=== PATIENT | female | born 1955 ===

== ENCOUNTER 2017-04-24 20:03 | Inpatient (IN) | payer OTHER ==
[2017-04-24 20:06] VITALS: BMI 42.0
[2017-04-24] MEDS ORDERED: Sodium Chloride 0.9% 1,000 ML IV STA (20:12)
[2017-04-24] MEDS ORDERED: Morphine 4 mg/ml ISec IVP STA (20:12)
[2017-04-24] MEDS ORDERED: Pantoprazole 40 MG in Sodium Chloride 0.9% 100 ML IV STA (20:12)
--- NOTE | 2017-04-24 20:58 | ED PDOC ---
Arrival/HPI - General Chief Complaint: Abdominal Pain Time Seen by Provider: 04/24/17 20:04 Historian: Patient - History of Present Illness Narrative History of Present Illness (Text): 04/24/17 20:58 Daksha Riddle is a 62 year old female, whose past medical history includes hypertension, diabetes, obesity, chronic knee pain, and neuropathy, who presents to the Emergency department complaining of diffuse abdominal pain for 1 day. Patient reports associated vomiting. Patient denies any fever, chills, chest pain, shortness of breath, diarrhea, urinary symptoms, back pain, neck pain, headache, dizziness, or any other complaints. PMD: Dr. Vincent Art Time/Duration: Other (1 day) Symptom Onset: Gradual Symptom Course: Unchanged Activities at Onset: Light Context: Home Past Medical History - Provider Review Nursing Documentation Reviewed: Yes - Infectious Disease Hx of Infectious Diseases: None - Tetanus Immunization Tetanus Immunization: Unknown - Cardiac Hx Pacemaker: No - Pulmonary Hx Asthma: Yes Hx Bronchitis: Yes - Neurological Hx Paralysis: No - HEENT Hx HEENT Disorder: No - Renal Hx Renal Disorder: No - Endocrine/Metabolic Hx Diabetes Mellitus Type 2: Yes - Hematological/Oncological Hx Blood Transfusions: No Hx Blood Transfusion Reaction: No - Integumentary Hx Dermatological Disorder: No - Musculoskeletal/Rheumatological Hx Musculoskeletal Disorders: Yes Hx Fractures: Yes (bilateral ankle, left hip) Other/Comment: "Knee problems" - Gastrointestinal Hx Gastrointestinal Disorders: No - Genitourinary/Gynecological Hx Genitourinary Disorders: No - Psychiatric Hx Emotional Abuse: No Hx Physical Abuse: No Hx Substance Use: No - Past Surgical History Past Surgical History: Non-Contributing - Surgical History Hx Appendectomy: Yes Hx Cholecystectomy: Yes Hx Orthopedic Surgery: Yes (left hip, "fusion of neck") - Anesthesia Hx Anesthesia Reactions: No Hx Malignant Hyperthermia: No - Suicidal Assessment Feels Threatened In Home Enviroment: No Family/Social History - Physician Review Nursing Documentation Reviewed: Yes Family/Social History: Unknown Family HX Smoking Status: Current Some Days Smoker Hx Alcohol Use: No Hx Substance Use: No Hx Substance Use Treatment: No Allergies/Home Meds Allergies/Adverse Reactions: Allergies Penicillins Allergy (Severe, Verified 01/25/16 13:22) ANAPHYLAXIS Home Medications: Home Meds Medication Instructions Recorded Confirmed Aspirin [Aspirin Chewable] 81 mg PO DAILY 04/25/17 04/25/17 Fluticasone/Salmeterol 250/50 2 puff INH DAILY 04/25/17 04/25/17 [Advair Diskus 250/50] Gabapentin [Neurontin] 600 mg PO TID 04/25/17 04/25/17 Sertraline [Zoloft] 50 mg PO DAILY 04/25/17 04/25/17 metFORMIN [glucOPHAGE] 500 mg PO BID 04/25/17 04/25/17 Review of Systems - Physician Review All systems were reviewed & negative as marked: Yes - Review of Systems Constitutional: Normal, Fevers Eyes: Normal ENT: Normal Respiratory: Normal. absent: SOB, Cough Cardiovascular: Normal. absent: Chest Pain Gastrointestinal: Abdominal Pain, Vomiting. absent: Diarrhea Genitourinary Female: Normal. absent: Dysuria, Frequency, Hematuria, Urine Output Changes Musculoskeletal: Normal. absent: Back Pain, Neck Pain Skin: Normal. absent: Rash Neurological: Normal. absent: Headache, Dizziness Endocrine: Normal Hemo/Lymphatic: Normal Psychiatric: Normal Physical Exam Vital Signs Reviewed: Yes Vital Signs Temp Pulse Resp BP Pulse Ox 04/25/17 01:27 79 20 127/60 95 04/24/17 23:39 98.3 F 79 17 127/57 L 98 04/24/17 20:31 98.2 F 74 16 114/65 96 Temperature: Afebrile Blood Pressure: Normal Pulse: Regular Respiratory Rate: Normal Appearance: Positive for: Well-Appearing, Non-Toxic, Comfortable Pain Distress: None Mental Status: Positive for: Alert and Oriented X 3 - Systems Exam Head: Present: Atraumatic, Normocephalic Pupils: Present: PERRL Extroacular Muscles: Present: EOMI Conjunctiva: Present: Normal Mouth: Present: Moist Mucous Membranes Neck: Present: Normal Range of Motion Respiratory/Chest: Present: Clear to Auscultation, Good Air Exchange. No: Respiratory Distress, Accessory Muscle Use Cardiovascular: Present: Regular Rate and Rhythm, Normal S1, S2. No: Murmurs Abdomen: Present: Tenderness (Diffuse tenderness), Normal Bowel Sounds. No: Distention, Peritoneal Signs, Rebound, Guarding Back: Present: Normal Inspection Upper Extremity: Present: Normal Inspection. No: Cyanosis, Edema Lower Extremity: Present: Normal Inspection. No: Edema Neurological: Present: GCS=15, CN II-XII Intact, Speech Normal Skin: Present: Warm, Dry, Normal Color. No: Rashes Psychiatric: Present: Alert, Oriented x 3, Normal Insight, Normal Concentration Medical Decision Making ED Course and Treatment: 04/24/17 20:58 Impression: 62 year old female complaining of diffuse abdominal pain and vomiting x1 day. Differential Diagnosis included but are not limited to: SBO vs. abdominal pain Plan: -- CT Abdomen and Pelvis -- EKG -- Labs, cardiac enzymes, amylase, lipase, blood cultures -- Urinalysis, urine cultures -- IV fluids -- Zofran -- Protonix -- Morphine -- Reassess and disposition Prior Visits: Notes and results from previous visits were reviewed. On 01/25/2016, pt was seen in the Emergency department for bilateral knee pain. Pt was d/c home. Progress Notes: Reviewed EKG, NSR at [address] bpm[address] Non-specific ST/T wave changes. 04/24/17 23:43 Reviewed radiology, CT Abdomen and Pelvis shows: 1. There is a relatively low density 19 mm right adrenal lesion. This is incompletely characterized on the post contrast study however may represent adenoma. Please correlate clinically and if indicated this could be further evaluated with adrenal CT or adrenal MRI. 2. There is small bowel obstruction with proximal loops measuring up to 4.3 CM and demonstrating some fecalization. Transition zone appears to be in the pelvis. 04/25/17 00:[address] Art, who is aware and agrees with plan. Accepts pt in to his service. Pt will be admitted to [facility] for small bowel obstruction. Requests on consult. president and ceo seasonal retail merchandiser paged. Pt in no acute distress. Discussed results and plan with pt, who is aware and verbalizes understanding. 04/25/17 00:[address] Dorsey, vice president of operations seasonal retail merchandiser, who is aware and agrees to evaluate pt. , surgeon, paged. - Lab Interpretations Microbiology Results: Microbiology Results 04/24/17 20:30 Blood-Venous Blood Culture - Preliminary NO GROWTH AFTER 48 HOURS 04/24/17 20:00 Blood-Venous Blood Culture - Preliminary NO GROWTH AFTER 48 HOURS 04/24/17 21:29 Urine,Clean Catch Urine Culture - Final No Growth (<1,000 CFU/ML) Lab Results: 04/24/17 20:48 04/24/17 20:48 Lab Results 04/24/17 22:40: pO2 32, VBG pH 7.28 L, VBG pCO2 66.0 H*, VBG HCO3 31.0 H, VBG Total CO2 33.0 H, VBG O2 Sat (Calc) 66.8 H, VBG Base Excess 2.4 H, VBG Potassium 4.0, Glucose 137 H, Lactate 1.3, FiO2 21.0, Sodium 139.0, Chloride 103.0, Venous Blood Potassium 4.0 04/24/17 21:29: Urine Color Yellow, Urine Appearance Clear, Urine pH 7.0, Ur Specific [place] 1.020, Urine Protein Negative, Urine Glucose (UA) Negative, Urine Ketones Trace H, Urine Blood Negative, Urine Nitrate Negative, Urine Bilirubin Negative, Urine Urobilinogen 0.2, Ur Leukocyte Esterase Negative 04/24/17 20:48: Sodium 139, Potassium 4.9, Chloride 102, Carbon Dioxide 30, Anion Gap 12, BUN 19, Creatinine 0.9, Est GFR ( Amer) > 60, Est GFR (Non- Af Amer) > 60, Random Glucose 184 H, Calcium 9.7, Total Bilirubin 1.1, AST 41 H , ALT 21, Alkaline Phosphatase 114, Lactate Dehydrogenase 913 H, Total Creatine Kinase 78, Troponin I 0.01, Total Protein 8.0, Albumin 4.4, Globulin 3.6, Albumin/Globulin Ratio 1.2, Amylase 61, Lipase 31 04/24/17 20:48: PT 10.5, INR 0.97, APTT 26.1 04/24/17 20:48: WBC 14.1 H D, RBC 4.72, Hgb 13.8, Hct 42.1, MCV 89.2, MCH 29.2, MCHC 32.8, RDW 14.5, Plt Count 268, MPV 11.8 H, Gran % 78.7 H, Lymph % (Auto) 14.0 L, [place] % (Auto) 6.7 H, Eos % (Auto) 0.4 L, Baso % (Auto) 0.2, Gran # 11.07 H, Lymph # 2.0, [place] # 1.0 H, Eos # 0.1, Baso # 0.03 I have reviewed the lab results: Yes - RAD Interpretation Narrative RAD Interpretations (Text): CT Abdomen and Pelvis shows: Lower thorax: There is minimal bibasilar atelectasis. There is calcification of the mitral valve. There is coronary artery calcification. Small hiatal hernia. ABDOMEN: Liver: There are no focal liver lesions present. Gallbladder and bile ducts: There has been a cholecystectomy. No ductal dilation. Pancreas: Pancreas is slightly fatty replaced. No ductal dilation. Spleen: The spleen is normal. Adrenals: There is a relatively low density 19 mm right adrenal lesion. This is incompletely characterized on the post contrast study however may represent adenoma. Please correlate clinically and if indicated this could be further evaluated with adrenal CT or adrenal MRI. The left adrenal gland is normal. Kidneys and ureters: The kidneys are normal. No hydronephrosis. Stomach and bowel: There is small bowel obstruction with proximal loops measuring up to 4.3 CM and demonstrating some fecalization. Transition zone appears to be in the pelvis. The stomach is normal. No mucosal thickening. Appendix: There has been an appendectomy by history. PELVIS: Bladder: Bladder is decompressed. Reproductive: Uterus is atrophic or absent. ABDOMEN and PELVIS: Intraperitoneal space: There is no evidence of free intraperitoneal fluid. There is no free intraperitoneal air. Bones/joints: Additionally, there are several screws traversing the superior acetabulum. These presumably secured an old fracture. There are mild degenerative changes present. There is mild diffuse osteopenia. No dislocation. Soft tissues: Unremarkable. Vasculature: The aorta demonstrates mild atherosclerotic calcification. No abdominal aortic aneurysm. Lymph nodes: There is no evidence of lymphadenopathy. Tubes, lines and devices: There is a left hip prosthesis which appears in near- anatomic position. This leads to beam hardening artifact and limits evaluation of the left hip and low pelvis regions. IMPRESSION: 1. There is a relatively low density 19 mm right adrenal lesion. This is incompletely characterized on the post contrast study however may represent adenoma. Please correlate clinically and if indicated this could be further evaluated with adrenal CT or adrenal MRI. 2. There is small bowel obstruction with proximal loops measuring up to 4.3 CM and demonstrating some fecalization. Transition zone appears to be in the pelvis. Radiology Orders: 04/24/17 20:13 ABD & PELVIS IV CONTRAST ONLY [CT] [employer] Integrator: Radiologist - EKG Interpretation Interpreted by ED Physician: Yes Type: 12 lead EKG - Medication Orders Current Medication Orders: Acetaminophen (Tylenol 325mg Tab) 650 mg PO Q4 PRN PRN Reason: Fever >100.4 F Heparin Sodium (Porcine) (Heparin) 5,000 units SC 0600,1800 [facility] PRN Reason: Protocol Last Admin: 04/27/17 17:16 Dose: 5,000 units [facility] aPTT Document 04/27/17 17:16 [facility] (Rec: 04/27/17 17:16 [id number]) aPTT aPTT (secs) 27.1 Subcutaneous Administrations Document 04/27/17 17:16 [facility] (Rec: 04/27/17 17:16 [id number]) Injection Site MAR Injection Site Left Abdomen Charges for Administration # of Subcutaneous Administrations 1 Hydromorphone HCl (Dilaudid) 2 mg IVP Q4H PRN PRN Reason: Pain, severe (8-10) Last Admin: 04/27/17 17:31 Dose: 2 mg [facility] Pain Assessment Document 04/27/17 17:31 MAD (Rec: 04/27/17 17:32 [facility]-[id number]) Pain Reassessment Is this a pain reassessment? Yes Sleep Is patient sleeping during reassessment? No Presence of Pain Presence of Pain Yes Pain Scale Used Pain Scale Used Numeric Location Upper or Lower Lower Pain Location Body Site Abdomen Description Description Throbbing Intensity of Pain at present 8 Acceptable Level of Pain 3 Pain Behavior Moaning Alleviating Factors/Management Medication Techniques Alleviating Factors Medication Pain not relieved and LIP/MD was No notified IVP Administration Document 04/27/17 17:31 [facility] (Rec: 04/27/17 17:32 [id number]) Charges for Administration # of IVP Administrations 1 Re-Assess: [facility] Pain Assessment Document 04/27/17 18:31 SD (Rec: 04/27/17 18:32 SD [id number]) Pain Reassessment Is this a pain reassessment? Yes Sleep Is patient sleeping during reassessment? Yes Sodium Chloride (Sodium Chloride 0.9%) 1,000 mls @ 130 mls/hr IV .[id number] [facility] Last Admin: 04/27/17 05:48 Dose: 130 mls/hr eMAR Start Stop Document 04/27/17 05:48 BN (Rec: 04/27/17 05:48 BN [id number]) Intravenous Solution Start Date 04/27/17 Start Time 05:48 Aztreonam (Azactam 1 Gm) 100 mls @ 100 mls/hr IV Q8 [facility] PRN Reason: Protocol Stop: 05/04/17 15:10 Last Admin: 04/27/17 13:26 Dose: 100 mls/hr eMAR Start Stop Document 04/27/17 13:26 MAD (Rec: 04/27/17 13:27 MAD [id number]) Intravenous Solution Start Date 04/27/17 Start Time 13:27 Metronidazole (Flagyl) 500 mg in 100 mls @ 100 mls/hr IVPB Q8 [facility] PRN Reason: Protocol Stop: 05/04/17 22:01 Last Admin: 04/27/17 14:26 Dose: 100 mls/hr eMAR Start Stop Document 04/27/17 14:26 SD (Rec: 04/27/17 14:27 SD [id number]) Intravenous Solution Start Date 04/27/17 Start Time 15:00 End Date 04/27/17 End time 16:00 Total Infusion Time 60 Insulin Human Regular (Humulin R High) 0 units SC ACHS [facility] PRN Reason: Protocol Last Admin: 04/27/17 16:44 Dose: Not Given Non-Admin Reason: Blood Sugar Parameter Comments: FBG 102 MAR Blood Glucose Document 04/27/17 16:44 MAD (Rec: 04/27/17 16:44 [id number]) Blood Glucose Finger Stick Blood Glucose (70-120) 102 Subcutaneous Administrations Document 04/27/17 16:44 MAD (Rec: 04/27/17 16:44 [facility]-[id number]) Injection Site MAR Injection Site Left Abdomen Charges for Administration # of Subcutaneous Administrations 0 Ketorolac Tromethamine (Toradol) 15 mg IVP Q4 PRN PRN Reason: Pain, moderate (4-7) Ondansetron HCl (Zofran Inj) 4 mg IVP Q4H PRN PRN Reason: Nausea/Vomiting Last Admin: 04/26/17 17:38 Dose: 4 mg IVP Administration Document 04/26/17 17:38 ANTOALL (Rec: 04/26/17 17:38 ANTOALL [facility]- [id number]) Charges for Administration # of IVP Administrations 1 Ondansetron HCl (Zofran Inj) 4 mg IVP ONCE PRN PRN Reason: Nausea/Vomiting Pantoprazole Sodium (Protonix Inj) 40 mg IVP DAILY [facility] Last Admin: 04/27/17 11:00 Dose: 40 mg IVP Administration Document 04/27/17 11:00 MAD (Rec: 04/27/17 11:01 MAD [id number]) Charges for Administration # of IVP Administrations 1 Discontinued Medications Hydromorphone HCl (Dilaudid) 2 mg IVP STAT STA Stop: 04/24/17 22:48 Last Admin: 04/24/17 23:01 Dose: 2 mg MAR Pain Assessment Document 04/24/17 23:01 SS (Rec: 04/24/17 23:02 SS [id number]) Pain Reassessment Is this a pain reassessment? Yes Sleep Is patient sleeping during reassessment? No Presence of Pain Presence of Pain Yes Pain Scale Used Pain Scale Used Numeric Location Pain Location Body Site Abdomen Description Intensity of Pain at present 9 IVP Administration Document 04/24/17 23:01 SS (Rec: 04/24/17 23:02 SS [id number]) Charges for Administration # of IVP Administrations 1 Hydromorphone HCl (Dilaudid) 0.5 mg IVP Q15M PRN PRN Reason: Pain, moderate (4-7) Stop: 04/26/17 17:33 Pantoprazole Sodium 40 mg/ (Sodium Chloride) 100 mls @ 400 mls/hr IV STAT STA Stop: 04/24/17 20:26 Last Admin: 04/24/17 20:54 Dose: 400 mls/hr eMAR Start Stop Document 04/24/17 20:54 SS (Rec: 04/24/17 20:54 SS [id number]) Intravenous Solution Start Date 04/24/17 Start Time 20:54 Sodium Chloride (Sodium Chloride 0.9%) 1,000 mls @ 100 mls/hr IV .Q10H STA Stop: 04/25/17 06:11 Last Admin: 04/24/17 20:54 Dose: 100 mls/hr eMAR Start Stop Document 04/24/17 20:54 SS (Rec: 04/24/17 20:54 SS [id number]) Intravenous Solution Start Date 04/24/17 Start Time 20:54 Clindamycin Phosphate 300 mg/ (Sodium Chloride) 52 mls @ 104 mls/hr IVPB STAT STA PRN Reason: Protocol Stop: 04/25/17 00:53 Last Admin: 04/25/17 01:17 Dose: 104 mls/hr eMAR Start Stop Document 04/25/17 01:17 SS (Rec: 04/25/17 01:17 SS [id number]) Intravenous Solution Start Date 04/25/17 Start Time 01:17 Metronidazole (Flagyl) 500 mg in 100 mls @ 100 mls/hr IVPB STAT STA PRN Reason: Protocol Stop: 04/25/17 01:23 Last Admin: 04/25/17 03:03 Dose: 100 mls/hr eMAR Start Stop Document 04/25/17 03:03 [employer] (Rec: 04/25/17 03:04 [employer] [id number]) Intravenous Solution Start Date 04/25/17 Start Time 03:04 End Date 04/25/17 End time 04:04 Total Infusion Time 60 Lactated Ringer's (Lactated Ringer's) 1,000 mls @ 75 mls/hr IV .[id number] [facility] Stop: 04/26/17 17:46 Morphine Sulfate (Morphine) 2 mg IVP STAT STA Stop: 04/24/17 20:13 Last Admin: 04/24/17 20:53 Dose: 2 mg MAR Pain Assessment Document 04/24/17 20:53 SS (Rec: 04/24/17 20:54 SS [id number]) Pain Reassessment Is this a pain reassessment? No Sleep Is patient sleeping during reassessment? No Presence of Pain Presence of Pain Yes Pain Scale Used Pain Scale Used Numeric Location Upper or Lower Lower Pain Location Body Site Abdomen Description Intensity of Pain at present 9 IVP Administration Document 04/24/17 20:53 SS (Rec: 04/24/17 20:54 SS [id number]) Charges for Administration # of IVP Administrations 1 Morphine Sulfate (Morphine) 2 mg IVP Q4H PRN PRN Reason: Pain, moderate (4-7) Last Admin: 04/26/17 04:06 Dose: 2 mg MAR Pain Assessment Document 04/26/17 04:06 BN (Rec: 04/26/17 04:06 BN [id number]) Pain Reassessment Is this a pain reassessment? No Sleep Is patient sleeping during reassessment? No Presence of Pain Presence of Pain Yes Pain Scale Used Pain Scale Used Numeric Location Pain Location Body Site Abdomen Description Pain Behavior Moaning Restlessness Alleviating Factors/Management Medication Techniques Alleviating Factors Medication IVP Administration Document 04/26/17 04:06 BN (Rec: 04/26/17 04:06 BN [id number]) Charges for Administration # of IVP Administrations 1 Re-Assess: MAR Pain Assessment Document 04/26/17 05:06 BN (Rec: 04/26/17 07:12 BN [id number]) Pain Reassessment Is this a pain reassessment? Yes Sleep Is patient sleeping during reassessment? Yes Ondansetron HCl (Zofran Inj) 4 mg IVP STAT STA Stop: 04/24/17 20:13 Last Admin: 04/24/17 20:54 Dose: 4 mg IVP Administration Document 04/24/17 20:54 SS (Rec: 04/24/17 20:54 SS [id number]) Charges for Administration # of IVP Administrations 1 - Scribe Statement The provider has reviewed the documentation as recorded by the Courtney Stewart Provider Scribe Attestation: All medical record entries made by the Scribbernabe were at my direction and personally dictated by me. I have reviewed the chart and agree that the record accurately reflects my personal performance of the history, physical exam, medical decision making, and the department course for this patient. I have also personally directed, reviewed, and agree with the discharge instructions and disposition. Disposition/Present on Arrival - Present on Arrival Any Indicators Present on Arrival: No History of DVT/PE: No History of Uncontrolled Diabetes: No Urinary Catheter: No History of Decub. Ulcer: No History Surgical Site Infection Following: None - Disposition Have Diagnosis and Disposition been Completed?: Yes Diagnosis: Small bowel obstruction Disposition: HOSPITALIZED Disposition Time: 00:25 Condition: FAIR
[2017-04-24 21:04] LABS: BASO # 0.03 K/mm3 (0.0-2.0); BASO % 0.2 % (0.0-3.0); EOS # 0.1 (0.0-0.7); EOS % 0.4 % (1.5-5.0); GRAN # 11.07 (1.4-6.5); GRAN % 78.7 % (50.0-68.0); HEMATOCRIT 42.1 % (36.0-48.0); MEAN CELL VOLUME 89.2 fl (80.0-105.0); MEAN CORPUSCULAR HEMOGLOBIN 29.2 pg (25.0-35.0); MEAN CORPUSCULAR HGB CONC 32.8 g/dl (31.0-37.0); MEAN PLATELET VOLUME 11.8 fl (7.0-11.0); MONO % 6.7 % (1.0-6.0); RED CELL DISTRIBUTION WIDTH 14.5 % (11.5-14.5); WHITE BLOOD COUNT 14.1 10^3/ul (4.5-11.0)
[2017-04-24 21:05] LABS: ALB/GLOB RATIO 1.2 (1.1-1.8); ALKALINE PHOSPHATASE 114 U/L (38-126); ALT/SGPT 21 U/L (7-56); AMYLASE 61 U/L (35-125); AST/SGOT 41 U/L (14-36); BILIRUBIN,TOTAL 1.1 mg/dL (0.2-1.3); BLOOD UREA NITROGEN 19 mg/dL (7-21); CALCIUM 9.7 mg/dL (8.4-10.5); CARBON DIOXIDE 30 mmol/L (21-33); CHLORIDE 102 mmol/L (98-107); GFR AFRICAN-AMERICAN > 60; GLUCOSE,RANDOM 184 mg/dL (70-110); LIPASE 31 U/L (23-300); POTASSIUM 4.9 mmol/L (3.6-5.0); SODIUM 139 mmol/L (132-148)
[2017-04-24 21:22] LABS: TROPONIN I 0.01 ng/mL
[2017-04-24 21:23] LABS: INR 0.97 (0.93-1.08); PARTIAL THROMBOPLASTIN TIME 26.1 Seconds (23.7-30.8)
[2017-04-24 21:37] LABS: URINE BILIRUBIN NEGATIVE (NEGATIVE); URINE BLOOD NEGATIVE (NEGATIVE); URINE GLUCOSE (UA) NEGATIVE (NEGATIVE); URINE KETONE TRACE mg/dL (NEGATIVE); URINE LEUKOCYTE ESTERASE NEGATIVE Leu/uL (NEGATIVE); URINE PROTEIN NEGATIVE mg/dL (<30 mg/dL); URINE UROBILINOGEN 0.2 E.U./dL (<1 E.U./dL)
[2017-04-24 21:42] LABS: URINE APPEARANCE CLEAR (CLEAR); URINE COLOR YELLOW (YELLOW)
[2017-04-24 22:44] LABS: VENOUS BLOOD GAS BASE EXCESS 2.4 mmol/L (0.0-2.0); VENOUS BLOOD PH 7.28 (7.32-7.43)
[2017-04-24] MEDS ORDERED: HYDROmorphone 2 mg/ml ISec IVP STA (22:47)
--- NOTE | 2017-04-24 23:40 | CT ---
EXAM: CT Abdomen and Pelvis With Intravenous Contrast CLINICAL HISTORY: 62 years old, female; Pain; Abdominal pain; Localized; Other: Mid abdomen pain; Prior surgery; Surgery date: 6+ months; Surgery type: Ap, gb, left hip; Additional info: Abd pain TECHNIQUE: Axial computed tomography images of the abdomen and pelvis with intravenous contrast. All CT scans at this facility use one or more dose reduction techniques, viz.: automated exposure control; ma/kV adjustment per patient size (including targeted exams where dose is matched to indication; i.e. head); or iterative reconstruction technique. Coronal and sagittal reformatted images were created and reviewed. CONTRAST: 70.5 mL of OMNIPAQUE 350 administered intravenously. COMPARISON: No relevant prior studies available. FINDINGS: Lower thorax: There is minimal bibasilar atelectasis. There is calcification of the mitral valve. There is coronary artery calcification. Small hiatal hernia. ABDOMEN: Liver: There are no focal liver lesions present. Gallbladder and bile ducts: There has been a cholecystectomy. No ductal dilation. Pancreas: Pancreas is slightly fatty replaced. No ductal dilation. Spleen: The spleen is normal. Adrenals: There is a relatively low density 19 mm right adrenal lesion. This is incompletely characterized on the post contrast study however may represent adenoma. Please correlate clinically and if indicated this could be further evaluated with adrenal CT or adrenal MRI. The left adrenal gland is normal. Kidneys and ureters: The kidneys are normal. No hydronephrosis. Stomach and bowel: There is small bowel obstruction with proximal loops measuring up to 4.3 CM and demonstrating some fecalization. Transition zone appears to be in the pelvis. The stomach is normal. No mucosal thickening. Appendix: There has been an appendectomy by history. PELVIS: Bladder: Bladder is decompressed. Reproductive: Uterus is atrophic or absent. ABDOMEN and PELVIS: Intraperitoneal space: There is no evidence of free intraperitoneal fluid. There is no free intraperitoneal air. Bones/joints: Additionally, there are several screws traversing the superior acetabulum. These presumably secured an old fracture. There are mild degenerative changes present. There is mild diffuse osteopenia. No dislocation. Soft tissues: Unremarkable. Vasculature: The aorta demonstrates mild atherosclerotic calcification. No abdominal aortic aneurysm. Lymph nodes: There is no evidence of lymphadenopathy. Tubes, lines and devices: There is a left hip prosthesis which appears in near-anatomic position. This leads to beam hardening artifact and limits evaluation of the left hip and low pelvis regions. IMPRESSION: 1. There is a relatively low density 19 mm right adrenal lesion. This is incompletely characterized on the post contrast study however may represent adenoma. Please correlate clinically and if indicated this could be further evaluated with adrenal CT or adrenal MRI. 2. There is small bowel obstruction with proximal loops measuring up to 4.3 CM and demonstrating some fecalization. Transition zone appears to be in the pelvis.
[2017-04-25] MEDS ORDERED: Clindamycin 300 MG in Sodium Chloride 0.9% 50 ML IVPB STA (00:24)
[2017-04-25] MEDS ORDERED: metroNIDAZOLE IV 500 mg/100 ml 500 MG/100 ML BAG IVPB STA (00:24)
--- NOTE | 2017-04-25 00:29 | CP.PCM.CON ---
History of Present Illness - History of Present Illness History of Present Illness: Surgery Consult note. 62yo F with PMHx of DM, Asthma, Depression here for evaluation of abdominal pain. Patient reports that she had spaghetti at around 3PM. She then started having severe abdominal pain, located in the center of her abdomen. She reports nausea and 1 episode of vomiting at home, non-bilious, non bloody. She describes the pain and sharp, crampy and waxing and waning. She denies ever having pain such as this before. At 7PM, she felt light-headed and had diaphoresis so she came to the ED for further evaluation. Last BM was this morning (normal caliber, nonbloody, non melanotic) and denies having any flatus since. She denies any chest pain, no SOB. No fevers or chills. No urinary complaints. No recent illness or sick contacts. PMD: Vincent Art PMHx: DM, Asthma, Depression PSHx: reports open appendectomy at age 15 followed by "bowel surgery for obstruction" 2 months after. Open Cholecystectomy 2000. Left Hip ORIF. Cervical spine fusion Social Hx: Former smoker (half ppd for 40 years, quit 1 year ago). Denies ETOH. Denies drugs. Lives at home with roommate. Allergy: PCN Review of Systems - Review of Systems All systems: reviewed and no additional remarkable complaints except - Constitutional Constitutional: absent: Chills, Fever - Cardiovascular Cardiovascular: Diaphoresis, Lightheadedness. absent: Chest Pain, Dyspnea - Gastrointestinal Gastrointestinal: Abdominal Pain, Nausea, Vomiting. absent: Diarrhea, Hematemesis, Hematochezia, Melena - Genitourinary Genitourinary: absent: Dysuria Past Patient History - Infectious Disease Hx of Infectious Diseases: None - Tetanus Immunizations Tetanus Immunization: Unknown - Past Medical History & Family History Past Medical History?: Yes Past Family History: Reviewed and not pertinent - Past Social History Smoking Status: Former Smoker Alcohol: None Drugs: Denies Home Situation {Lives}: Roommate - CARDIAC Hx Pacemaker: No - PULMONARY Hx Asthma: Yes Hx Bronchitis: Yes - NEUROLOGICAL Hx Paralysis: No - HEENT Hx HEENT Problems: No - RENAL Hx Chronic Kidney Disease: No - ENDOCRINE/METABOLIC Hx Diabetes Mellitus Type 2: Yes - HEMATOLOGICAL/ONCOLOGICAL Hx Blood Transfusions: No Hx Blood Transfusion Reaction: No - INTEGUMENTARY Hx Dermatological Problems: No - MUSCULOSKELETAL/RHEUMATOLOGICAL Hx Musculoskeletal Disorders: Yes Hx Fractures: Yes (bilateral ankle, left hip) Other/Comment: "Knee problems" - GASTROINTESTINAL Hx Gastrointestinal Disorders: No - GENITOURINARY/GYNECOLOGICAL Hx Genitourinary Disorders: No - PSYCHIATRIC Hx Emotional Abuse: No Hx Physical Abuse: No Hx Substance Use: No - SURGICAL HISTORY Hx Appendectomy: Yes Hx Cholecystectomy: Yes Hx Orthopedic Surgery: Yes (left hip, "fusion of neck") - ANESTHESIA Hx Anesthesia Reactions: No Hx Malignant Hyperthermia: No Meds Allergies/Adverse Reactions: Allergies Allergy/AdvReac Type Severity Reaction Status Date / Time Penicillins Allergy Severe ANAPHYLAXIS Verified 01/25/16 13:22 - Medications Medications: Current Medications Sodium Chloride (Sodium Chloride 0.9%) 1,000 mls @ 100 mls/hr IV .Q10H STA Stop: 04/25/17 06:11 Last Admin: 04/24/17 20:54 Dose: 100 mls/hr Clindamycin Phosphate 300 mg/ (Sodium Chloride) 52 mls @ 104 mls/hr IVPB STAT STA PRN Reason: Protocol Stop: 04/25/17 00:53 Metronidazole (Flagyl) 500 mg in 100 mls @ 100 mls/hr IVPB STAT STA PRN Reason: Protocol Stop: 04/25/17 01:23 Physical Exam - Constitutional Appears: Non-toxic, No Acute Distress - Head Exam Head Exam: ATRAUMATIC, NORMAL INSPECTION, NORMOCEPHALIC - Eye Exam Eye Exam: EOMI, Normal appearance, PERRL - ENT Exam ENT Exam: Mucous Membranes Moist - Respiratory Exam Respiratory Exam: NORMAL BREATHING PATTERN. absent: Rales, Rhonchi, Wheezes, Respiratory Distress - Cardiovascular Exam Cardiovascular Exam: RRR, +S1, +S2. absent: JVD - GI/Abdominal Exam GI & Abdominal Exam: Soft. absent: Distended, Rebound, Rigid Additional comments: periumbilical tenderness to palpation. Soft, mildly distended. No Rebound, no guarding. Surgical scars: Right lower quadrant (Appendectomy transverse incision scar), Right upper quadrant (Cholecystectomy Ronaldo incision scar), Midline incision scar (Ex lap). Left Lower Quadrant ([place] Ramos incision scar) Results - Vital Signs Recent Vital Signs: Last Vital Signs Temp 98.3 F 04/24/17 23:39 Pulse 79 04/24/17 23:39 Resp 17 04/24/17 23:39 BP 127/57 L 04/24/17 23:39 Pulse Ox 98 04/24/17 23:39 - Labs Result Diagrams: 04/25/17 07:20 04/25/17 07:20 Labs: Laboratory Results - last 24 hr 04/24/17 04/24/17 04/24/17 20:48 20:48 20:48 WBC 14.1 H D RBC 4.72 Hgb 13.8 Hct 42.1 MCV 89.2 MCH 29.2 MCHC 32.8 RDW 14.5 Plt Count 268 MPV 11.8 H Gran % 78.7 H Lymph % (Auto) 14.0 L [place] % (Auto) 6.7 H Eos % (Auto) 0.4 L Baso % (Auto) 0.2 Gran # 11.07 H Lymph # 2.0 [place] # 1.0 H Eos # 0.1 Baso # 0.03 PT 10.5 INR 0.97 APTT 26.1 pO2 VBG pH VBG pCO2 VBG HCO3 VBG Total CO2 VBG O2 Sat (Calc) VBG Base Excess VBG Potassium Glucose Lactate FiO2 Sodium 139 Potassium 4.9 Chloride 102 Carbon Dioxide 30 Anion Gap 12 BUN 19 Creatinine 0.9 Est GFR ( Amer) > 60 Est GFR (Non-Af Amer) > 60 Random Glucose 184 H Calcium 9.7 Total Bilirubin 1.1 AST 41 H ALT 21 Alkaline Phosphatase 114 Lactate Dehydrogenase 913 H Total Creatine Kinase 78 Troponin I 0.01 Total Protein 8.0 Albumin 4.4 Globulin 3.6 Albumin/Globulin Ratio 1.2 Amylase 61 Lipase 31 Venous Blood Potassium Urine Color Urine Appearance Urine pH Ur Specific [place] Urine Protein Urine Glucose (UA) Urine Ketones Urine Blood Urine Nitrate Urine Bilirubin Urine Urobilinogen Ur Leukocyte Esterase 04/24/17 04/24/17 21:29 22:40 WBC RBC Hgb Hct MCV MCH MCHC RDW Plt Count MPV Gran % Lymph % (Auto) [place] % (Auto) Eos % (Auto) Baso % (Auto) Gran # Lymph # [place] # Eos # Baso # PT INR APTT pO2 32 VBG pH 7.28 L VBG pCO2 66.0 H* VBG HCO3 31.0 H VBG Total CO2 33.0 H VBG O2 Sat (Calc) 66.8 H VBG Base Excess 2.4 H VBG Potassium 4.0 Glucose 137 H Lactate 1.3 FiO2 21.0 Sodium 139.0 Potassium Chloride 103.0 Carbon Dioxide Anion Gap BUN Creatinine Est GFR ( Amer) Est GFR (Non-Af Amer) Random Glucose Calcium Total Bilirubin AST ALT Alkaline Phosphatase Lactate Dehydrogenase Total Creatine Kinase Troponin I Total Protein Albumin Globulin Albumin/Globulin Ratio Amylase Lipase Venous Blood Potassium 4.0 Urine Color Yellow Urine Appearance Clear Urine pH 7.0 Ur Specific [place] 1.020 Urine Protein Negative Urine Glucose (UA) Negative Urine Ketones Trace H Urine Blood Negative Urine Nitrate Negative Urine Bilirubin Negative Urine Urobilinogen 0.2 Ur Leukocyte Esterase Negative Assessment & Plan - Assessment and Plan (Free Text) Assessment: 62yo F with SBO. - CT abd - SBO with proximal loops dilated to 4.3cm. Probable transition point in pelvis - NPO - NGT to low intermittent suction - IVF - Zofran prn - pain management - strict I&O - f/u procalcitonin, CRP and AM labs Further recs as per Dr. Calvin Dorsey PGY1 surgery pager: [phone]
[2017-04-25] MEDS ORDERED: Sodium Chloride 0.9% 1,000 ML IV STA (01:01)
[2017-04-25] MEDS: Morphine 2 mg/ml ISec IVP PRN ×5 (01:47→22:24)
[2017-04-25] MEDS: Sodium Chloride 0.9% 1,000 ML IV SCH ×2 (03:04→22:09)
[2017-04-25 07:36] LABS: BASO # 0.02 K/mm3 (0.0-2.0); BASO % 0.2 % (0.0-3.0); EOS % 0.1 % (1.5-5.0); GRAN # 8.87 (1.4-6.5); GRAN % 79.4 % (50.0-68.0); LYMPH # 1.6 (1.2-3.4); LYMPH % 14.6 % (22.0-35.0); MEAN CELL VOLUME 90.5 fl (80.0-105.0); MEAN CORPUSCULAR HEMOGLOBIN 29.1 pg (25.0-35.0); MEAN CORPUSCULAR HGB CONC 32.1 g/dl (31.0-37.0); MEAN PLATELET VOLUME 11.8 fl (7.0-11.0); MONO # 0.6 (0.1-0.6); MONO % 5.7 % (1.0-6.0); RED CELL DISTRIBUTION WIDTH 14.8 % (11.5-14.5); WHITE BLOOD COUNT 11.2 10^3/ul (4.5-11.0)
[2017-04-25 07:47] LABS: ALB/GLOB RATIO 1.3 (1.1-1.8); ALKALINE PHOSPHATASE 97 U/L (38-126); ALT/SGPT 38 U/L (7-56); AST/SGOT 25 U/L (14-36); BILIRUBIN,TOTAL 0.5 mg/dL (0.2-1.3); BLOOD UREA NITROGEN 16 mg/dL (7-21); CALCIUM 9.5 mg/dL (8.4-10.5); CARBON DIOXIDE 31 mmol/L (21-33); CHLORIDE 106 mmol/L (95-110); GFR AFRICAN-AMERICAN > 60; GLUCOSE,RANDOM 122 mg/dL (70-110); POTASSIUM 4.7 mmol/L (3.6-5.0); SODIUM 144 mmol/L (132-148); TOTAL PROTEIN 7.3 g/dL (5.8-8.3)
--- NOTE | 2017-04-25 07:56 | RAD ---
PROCEDURE: Portable chest HISTORY: NGT placement COMPARISON: 07/28/2014 TECHNIQUE: FINDINGS: The heart mediastinum are normal in size per the lungs are clear. The nasogastric tube appears to be in satisfactory position beyond the GE junction. The tip of the catheter is difficult to visualize IMPRESSION: The heart mediastinum are normal in size per the lungs are clear. The nasogastric tube appears to be in satisfactory position beyond the GE junction. The tip of the catheter is difficult to visualize
--- NOTE | 2017-04-25 11:14 | CARD ---
APPROVED REPORT EKG Measurement Heart [id number] <Conclusion> Normal sinus rhythm Biatrial enlargement
[2017-04-25] MEDS: Insulin Reg-HIGH-Coverage SC SCH ×3 (11:38→22:08)
[2017-04-25] MEDS: Aztreonam 1 Gm in NS 100mL 100 ML IV SCH ×2 (17:03→22:09)
--- NOTE | 2017-04-25 20:42 | HP ---
HISTORY OF PRESENT ILLNESS: I know the patient from the office. She is a very nice lady. She comes in. She is a 62-year-old female who comes in with complaining of diffuse abdominal pain for about 24 hours. She was throwing up at home. She had spaghetti. She first thought it was indigestion and then it got very sharp, and she called 911. She was afraid she was going to pass out and did not want to be home alone. PAST MEDICAL HISTORY: Hypertension, diabetes, obesity, chronic knee pain from osteoarthritis and neuropathy. Now, she has severe abdominal pain, asthma, and bronchitis. She had bilateral ankle fractures, left hip fractures, knee problems. She had an appendectomy, cholecystectomy, left hip fusion of a neck. FAMILY HISTORY: She has hypertension in the family. SOCIAL HISTORY: She still smokes cigarettes. No alcohol. No drugs. ALLERGIES: SHE IS ALLERGIC TO PENICILLIN. MEDICATIONS: She also takes Advair for asthma, aspirin, metformin for the diabetes, gabapentin for neuropathy and pain, sertraline for her depression that she has. REVIEW OF SYSTEMS: No acute vision or hearing changes. No sore throat. No shortness of breath or cough. No chest pain or palpitations. There is severe abdominal pain. There is vomiting that is acute. Making her bend over, pain is severe. No problems urinating. No back pain. No skin rashes or ulcers. No headache or dizziness. No sweating. No apparent anxiety or depression. PHYSICAL EXAMINATION VITAL SIGNS: She has 98.3 temperature, 79 pulse, 20 respiratory rate, 127/60 blood pressure, 95% O2 sat on room air. HEENT: Head is atraumatic and normocephalic. Extraocular muscles are intact. Pupils are equal and reactive to light. Throat is moist. NECK: Supple. Well appearing. More comfortable now with NG tube in and pain meds. HEART: Regular rate. Normal S1 and S2. LUNGS: Decreased breath sounds. Poor inspiration. No wheezes, no rhonchi, no rales. ABDOMEN: Diffuse tenderness allover. No distention. No guarding. No rebound. Tender acutely at times when she contracts her body. EXTREMITIES: +1/4 pitting edema in bilateral lower extremities. NEUROLOGIC: GCS is 15. Cranial nerves II through XII grossly intact. Alert and oriented x3. NODES: Thyroid midline. No palpable appreciable lymphadenopathy. LABORATORY DATA: She had multiple labs. She came in with a 14.1 white count, it is down to 11.2 with 13.0 hemoglobin, 43 hematocrit with 270 platelets. INR is 0.97. She has 7.28 pH. Sodium 144, potassium 4.7, BUN 16, creatinine 0.9, GFR is greater than 60, sugar is 122, calcium is 9.5, total bili is 0.5, AST is 25, ALT is 38, alk phos 97, total protein 7.3. Urine has trace ketones. She had a CAT scan of the abdomen and pelvis, which showed small bowel obstruction with proximal loops measuring up to 4.3-cm and fecalization within in the pelvis, 90-mm right adrenal region. IMPRESSION: Small bowel obstruction. PLAN: She has surgery on the case. They are thinking about doing surgery. There is NG tube. We will get cardiac, renal, and also IV antibiotics might be needed. She was on clindamycin. We will get infectious disease on the case, put her back on some meds, insulin coverage, some morphine for pain. She is quite miserable and looks like she might be going to surgery in next 24 hours. Chano Art DO MTDD
[2017-04-25] MEDS: metroNIDAZOLE IV 500 mg/100 ml 500 MG/100 ML BAG IVPB SCH (22:07)
--- NOTE | 2017-04-26 00:41 | CON ---
DATE: 04/25/2017 LOCATION: The patient is seen in room 573, bed 3. CHIEF COMPLAINT: Weakness times several days. HISTORY OF PRESENT ILLNESS: This is a 62-year-old female with past medical history significant for obesity, diabetes, hypertension, chronic knee pain, neuropathy and admitted with diffuse abdominal pain associated with vomiting. No fevers. No chills. There was no chest pain or shortness of breath. No diarrhea. No dysuria or frequency. PAST MEDICAL HISTORY: Significant for hypertension, diabetes, chronic knee pain, neuropathy, and obesity. PAST SURGICAL HISTORY: Significant for left hip surgery, appendectomy, and cholecystectomy. ALLERGIES: THE PATIENT IS ALLERGIC TO PENICILLIN, THE CHART SAYS THAT IS ANAPHYLAXIS; HOWEVER, THE PATIENT IS NOT CERTAIN WHAT TYPE OF REACTION SHE HAD. MEDICATIONS AT HOME: Include the patient to be on inhaler, aspirin, metformin, Zoloft, and gabapentin. She is on Neurontin. PHYSICAL EXAMINATION: VITAL SIGNS: The patient is in bed with a temperature of 98, blood pressure is 120/70, pulse of 78, and respiratory rate of 18. HEENT: Unremarkable. There is an NG tube in place. NECK: Supple. LUNGS: Have decreased breath sounds. HEART: Normal S1 and S2. ABDOMEN: Soft and nontender. No rebound. LABORATORY DATA: Revealed the patient has had a white count of 14,100, hemoglobin of 13, platelets of 268, and 78% granulocytosis. Coagulation is noted. Chemistries reveal the patient has a BUN of 16 and creatinine of 0.9. Procalcitonin is 0.05. Urinalysis is unremarkable. Chest x-ray; no infiltrates. The patient had a CT scan of the abdomen, which shows small bowel obstruction and questionable adrenal lesion. ASSESSMENT AND PLAN: A 62-year-old female with hypertension, diabetes, obesity, and neuropathy, was allergic to penicillin and is now admitted with a small bowel obstruction and leukocytosis resolved and will down to 11,200. We will use Flagyl and Azactam and follow WBC count. We will follow closely with you. Carlitos Toro MD
[2017-04-26] MEDS: Sodium Chloride 0.9% 1,000 ML IV SCH ×2 (03:59→21:21)
[2017-04-26] MEDS: Morphine 2 mg/ml ISec IVP PRN (04:06)
[2017-04-26] MEDS: Aztreonam 1 Gm in NS 100mL 100 ML IV SCH ×2 (05:41→21:21)
[2017-04-26] MEDS: metroNIDAZOLE IV 500 mg/100 ml 500 MG/100 ML BAG IVPB SCH ×2 (05:42→21:21)
[2017-04-26 06:56] LABS: BASO # 0.03 K/mm3 (0.0-2.0); BASO % 0.4 % (0.0-3.0); EOS # 0.1 (0.0-0.7); EOS % 1.4 % (1.5-5.0); GRAN # 5.24 (1.4-6.5); GRAN % 66.6 % (50.0-68.0); HEMATOCRIT 40.6 % (36.0-48.0); LYMPH # 1.8 (1.2-3.4); LYMPH % 23.1 % (22.0-35.0); MEAN CELL VOLUME 91.6 fl (80.0-105.0); MEAN CORPUSCULAR HEMOGLOBIN 28.7 pg (25.0-35.0); MEAN CORPUSCULAR HGB CONC 31.3 g/dl (31.0-37.0); MEAN PLATELET VOLUME 11.4 fl (7.0-11.0); MONO # 0.7 (0.1-0.6); MONO % 8.5 % (1.0-6.0); RED CELL DISTRIBUTION WIDTH 14.9 % (11.5-14.5); WHITE BLOOD COUNT 7.9 10^3/ul (4.5-11.0)
[2017-04-26] MEDS ORDERED: Propofol 10 mg/ml Inj (20 ML) ONE ×2 (07:31→14:23)
[2017-04-26] MEDS ORDERED: Succinylcholine 200 mg/10 ml Inj IV ONE (07:32)
[2017-04-26] MEDS ORDERED: ePHEDrine 50 mg/ml Inj ONE (07:32)
[2017-04-26] MEDS ORDERED: Phenylephrine 10 mg/ml Inj ONE (07:32)
[2017-04-26] MEDS ORDERED: Midazolam 2 MG/2 ML VIAL ONE (07:32)
[2017-04-26 07:35] LABS: ALB/GLOB RATIO 1.2 (1.1-1.8); ALKALINE PHOSPHATASE 90 U/L (38-126); ALT/SGPT 32 U/L (7-56); AST/SGOT 24 U/L (14-36); BILIRUBIN,TOTAL 0.6 mg/dL (0.2-1.3); BLOOD UREA NITROGEN 15 mg/dL (7-21); CALCIUM 8.8 mg/dL (8.4-10.5); CARBON DIOXIDE 31 mmol/L (21-33); CHLORIDE 107 mmol/L (98-107); GFR AFRICAN-AMERICAN > 60; GLUCOSE,RANDOM 114 mg/dL (70-110); POTASSIUM 4.3 mmol/L (3.6-5.0); SODIUM 145 mmol/L (132-148); TOTAL PROTEIN 6.7 g/dL (5.8-8.3)
[2017-04-26] MEDS ORDERED: Bupivacaine 0.5% Inj(30mL) ONE (07:58)
--- NOTE | 2017-04-26 08:43 | CON ---
CARDIOLOGY CONSULTATION DATE: 04/25/2017 HISTORY OF PRESENT ILLNESS: The patient is a 62-year-old woman who presents with nausea and vomiting consistent with a small bowel obstruction. The patient's past medical history includes diabetes mellitus, hypertension and probable COPD. There is no evidence of previous cardiac history. The patient is able to climb a flight of stairs slowly without shortness of breath. She denies angina. No previous myocardial infarction. She does complain of occasional dyspnea due to her marked obesity. She does experience chronic pedal edema. SOCIAL HISTORY: She is a former smoker. REVIEW OF SYSTEMS: A 14-point review of systems includes difficulty walking after an accident that cause injury to her left lower extremity. She denies angina, positive pedal edema. Negative orthopnea. Positive exertional shortness of breath. PHYSICAL EXAMINATION: VITAL SIGNS: Blood pressure 147/99, heart rate in the 70s. NECK: Negative JVD. LUNGS: Without rales. HEART: S1, S2. EXTREMITIES: Chronic edema. EKG was never done and not available. LABORATORY: Glucose is 122. The hemoglobin is 13.8. IMPRESSION: 1. Small bowel obstruction. 2. Diabetes mellitus. 3. Hypertension. 4. Obesity. 5. Probable chronic obstructive pulmonary disease. 6. Chronic pedal edema. Given these findings, although the patient has no previous cardiac history, her cardiac risk factors of concern. Given the urgency of her surgery, she would become increased risk due to her diabetes mellitus, COPD and an obesity. Given these findings, we will obtain an EKG today. There is no new cardiac intervention is necessary at this time prior to her surgery. Adam Arrieta MD
--- NOTE | 2017-04-26 09:44 | CP.PCM.PN ---
Subjective - Date & Time of Evaluation Date of Evaluation: 04/26/17 Time of Evaluation: 09:42 - Subjective Subjective: Surgery Pt s&e. c/o low abd pain and nausea. Denies F/C. NGT in place: bilious fluids. Objective - Vital Signs/Intake and Output Vital Signs (last 24 hours): Temp Pulse Resp BP Pulse Ox 98.2 F 84 20 128/78 96 04/26/17 07:00 04/26/17 07:00 04/26/17 07:00 04/26/17 07:00 04/26/17 07:00 Intake and Output: 04/26/17 04/26/17 06:59 18:59 Intake Total 0 Balance 0 - Medications Medications: Current Medications Sodium Chloride (Sodium Chloride 0.9%) 1,000 mls @ 130 mls/hr IV .Q7H42M [facility] Last Admin: 04/26/17 03:59 Dose: Not Given Aztreonam (Azactam 1 Gm) 100 mls @ 100 mls/hr IV Q8 STONE PRN Reason: Protocol Stop: 05/04/17 15:10 Last Admin: 04/26/17 05:41 Dose: 100 mls/hr Metronidazole (Flagyl) 500 mg in 100 mls @ 100 mls/hr IVPB Q8 STONE PRN Reason: Protocol Stop: 05/04/17 22:01 Last Admin: 04/26/17 05:42 Dose: 100 mls/hr Insulin Human Regular (Humulin R High) 0 units SC ACHS STONE PRN Reason: Protocol Last Admin: 04/25/17 22:08 Dose: Not Given Morphine Sulfate (Morphine) 2 mg IVP Q4H PRN PRN Reason: Pain, moderate (4-7) Last Admin: 04/26/17 04:06 Dose: 2 mg Ondansetron HCl (Zofran Inj) 4 mg IVP Q4H PRN PRN Reason: Nausea/Vomiting Pantoprazole Sodium (Protonix Inj) 40 mg IVP DAILY [facility] Last Admin: 04/25/17 09:19 Dose: 40 mg - Labs Labs: 04/26/17 06:42 04/26/17 06:42 PT 10.5 Seconds (9.9-11.8) 04/24/17 20:48 INR 0.97 (0.93-1.08) 04/24/17 20:48 APTT 26.1 Seconds (23.7-30.8) 04/24/17 20:48 - Head Exam Head Exam: ATRAUMATIC, NORMAL INSPECTION, NORMOCEPHALIC - Eye Exam Eye Exam: EOMI, Normal appearance, PERRL Pupil Exam: NORMAL ACCOMODATION, PERRL - ENT Exam ENT Exam: Mucous Membranes Moist, Normal Exam - Neck Exam Neck Exam: Full ROM, Normal Inspection. absent: Lymphadenopathy - Respiratory Exam Respiratory Exam: Clear to Ausculation Bilateral, NORMAL BREATHING PATTERN - Cardiovascular Exam Cardiovascular Exam: REGULAR RHYTHM, +S1, +S2. absent: Murmur - GI/Abdominal Exam GI & Abdominal Exam: Soft, Tenderness, Normal Bowel Sounds Additional comments: Low abd TTP. - Exam Exam: NORMAL INSPECTION - Extremities Exam Extremities Exam: Full ROM, Normal Capillary Refill, Normal Inspection. absent : Joint Swelling, Pedal Edema - Back Exam Back Exam: NORMAL INSPECTION - Neurological Exam Neurological Exam: Alert, Awake, CN II-XII Intact, Normal Gait, Oriented x3 - Psychiatric Exam Psychiatric exam: Normal Affect, Normal Mood - Skin Skin Exam: Dry, Intact, Normal Color, Warm Assessment and Plan - Assessment and Plan (Free Text) Assessment: SBO -Serial bad exam -Likely OR today -NGT/NPO -MOnitor bowel function DW
[2017-04-26] MEDS: Insulin Reg-HIGH-Coverage SC SCH ×3 (09:51→18:00)
[2017-04-26 10:12] LABS: INR 0.96 (0.93-1.08); PARTIAL THROMBOPLASTIN TIME 27.1 Seconds (23.7-30.8)
[2017-04-26] MEDS ORDERED: Lidocaine 1% Inj (20ml) ONE (11:46)
--- NOTE | 2017-04-26 12:02 | PN ---
SUBJECTIVE: I saw her in same-day surgery. She is going to have a small-bowel resection today for small-bowel obstruction. She is still not feeling well, the NG tube is in place and surgery feels that it has to go today. She is on Azactam, Flagyl, insulin, morphine, Protonix, IV fluid and Zofran. PHYSICAL EXAMINATION: VITAL SIGNS: She has a 98.2 temperature, 84 pulse, 120/70 blood pressure, 20 respiratory rate and 96% O2 saturation on room air. HEENT: Head is atraumatic and normocephalic. NG tube is in placed with suction. HEART: Regular rate. LUNGS: Decreased breath sounds, but clear. ABDOMEN: Soft, no bowel sounds, mild tenderness. No guarding. EXTREMITIES: No edema. LABORATORY DATA: She has a 7.9 white count, better; 12.7 hemoglobin, 40.6 hematocrit with 237 platelets. INR is 0.97. Sodium 145, potassium 4.3, BUN 16, creatinine 0.8, GFR is greater than 60, sugar is 114, calcium 8.8, total bilirubin 0.6, AST is 24, ALT is 32, alkaline phosphatase 90. Total protein 6.7. Urine is clear and negative. Micro is negative. She had a EKG which showed normal sinus rhythm, biatrial enlargement. Chest x-ray, normal. Medically, she is optimized for surgery. She was also seen by Dr. Arrieta, I do not see his note yet in but as far as I can tell she is medically optimized for surgery. We will continue with treatment and care of the surgery for small-bowel obstruction. Continue aggressive treatment and care on Daksha Riddle with severe abdominal pain. Chano Art DO MTDBrandyn
--- NOTE | 2017-04-26 13:27 | PN ---
DATE: 04/26/2017 SUBJECTIVE: The patient is in bed, seen earlier this morning in 573, bed 3. No fevers. No chills. She was taken to the OR for surgery, was returned, no surgery was done, and awaiting for further instructions. OBJECTIVE: VITAL SIGNS: Temperature is 98, blood pressure is 120/70, respiratory rate of 20, and heart rate of 84. HEENT: Unremarkable. NECK: Supple. LUNGS: Have decreased breath sounds. HEART: Normal S1 and S2. ABDOMEN: Soft and nontender. LABORATORY DATA: Reveals a white count of 7.9, hemoglobin of 12, and platelets of 237. Chemistries reveals a BUN of and creatinine of 0.8. Microbiology is noted to have negative blood cultures. ASSESSMENT AND PLAN: A 62-year-old female with hypertension, diabetes, obesity, neuropathy, was allergic to penicillin now with small bowel obstruction, currently on Azactam and Flagyl for possible OR today and we will follow with you. Carlitos Toro MD
[2017-04-26] MEDS ORDERED: Desflurane Inhalation Anesthetic Liq (240 ml) ONE (14:18)
[2017-04-26] MEDS ORDERED: Neostigmine Methylsulfate 3mg/3ml Syringe IV ONE (14:21)
--- NOTE | 2017-04-26 14:25 | PN ---
DATE: 04/26/2017 CARDIOLOGY FOLLOWUP SUBJECTIVE: The patient remains with an NG tube. Her abdominal pain is better. OBJECTIVE: VITAL SIGNS: Blood pressure 128/78, heart rate in the 80s. NECK: Negative JVD. LUNGS: Without rales. HEART: S1, S2. EXTREMITIES: Without edema. LABORATORY DATA: Hemoglobin 12.7. BUN and creatinine unremarkable. IMPRESSION: 1. Small bowel obstruction. 2. Diabetes mellitus. 3. Obesity. 4. Hypertension. 5. Chronic pedal edema. PLAN: Given these findings, the patient is awaiting abdominal surgery today. Adam Arrieta MD
[2017-04-26] MEDS ORDERED: Absorbable Gelatin Sponge Size 100 ONE (15:17)
[2017-04-26] MEDS ORDERED: HYDROmorphone 0.5 mg/0.5 ml ISec IVP PRN (15:33)
--- NOTE | 2017-04-26 15:33 | PCM.SURG1 ---
Surgeon's Initial Post Op Note - Surgeon's Notes Surgeon: Medicaid Collection Specialist: Jase Moura PGy2, Sylvester PGY1 Type of Anesthesia: General Endo Pre-Operative Diagnosis: Small bowel obstruction Operative Findings: Extensive adhesions. Post-Operative Diagnosis: Same Operation Performed: Ex lap lysis of adhesions, small bowel resection with anastomosis. Specimen/Specimens Removed: small bowel Estimated Blood Loss: EBL {In ML}: 200 Blood Products Given: N/A Drains Used: No Drains Post-Op Condition: Good Date of Surgery/Procedure: 04/26/17 Time of Surgery/Procedure: 15:35
--- NOTE | 2017-04-26 15:36 | CARD ---
APPROVED REPORT EKG Measurement Heart [id number] <Conclusion> Normal sinus rhythm Possible Left atrial enlargement
[2017-04-26] MEDS ORDERED: Lactated Ringer's 1,000 ML IV SCH (15:45)
[2017-04-26] MEDS: HYDROmorphone 2 mg/ml ISec IVP PRN ×2 (17:37→21:20)
[2017-04-27] MEDS: HYDROmorphone 2 mg/ml ISec IVP PRN ×5 (04:01→23:19)
[2017-04-27] MEDS: metroNIDAZOLE IV 500 mg/100 ml 500 MG/100 ML BAG IVPB SCH ×3 (05:44→21:06)
[2017-04-27] MEDS: Aztreonam 1 Gm in NS 100mL 100 ML IV SCH ×3 (05:44→21:56)
[2017-04-27] MEDS: Sodium Chloride 0.9% 1,000 ML IV SCH ×3 (05:48→17:32)
[2017-04-27] MEDS: Insulin Reg-HIGH-Coverage SC SCH ×5 (05:53→23:14)
[2017-04-27 07:44] LABS: HEMATOCRIT 39.9 % (36.0-48.0); MEAN CELL VOLUME 90.1 fl (80.0-105.0); MEAN CORPUSCULAR HEMOGLOBIN 28.7 pg (25.0-35.0); MEAN CORPUSCULAR HGB CONC 31.8 g/dl (31.0-37.0); MEAN PLATELET VOLUME 11.7 fl (7.0-11.0); RED CELL DISTRIBUTION WIDTH 14.6 % (11.5-14.5)
[2017-04-27 08:12] LABS: ALB/GLOB RATIO 1.2 (1.1-1.8); ALKALINE PHOSPHATASE 78 U/L (38-126); ALT/SGPT 34 U/L (7-56); AST/SGOT 24 U/L (14-36); BILIRUBIN,TOTAL 0.6 mg/dL (0.2-1.3); BLOOD UREA NITROGEN 14 mg/dL (7-21); CALCIUM 8.7 mg/dL (8.4-10.5); CARBON DIOXIDE 26 mmol/L (21-33); CHLORIDE 106 mmol/L (98-107); GFR AFRICAN-AMERICAN > 60; GLUCOSE,RANDOM 111 mg/dL (70-110); SODIUM 140 mmol/L (132-148); TOTAL PROTEIN 6.5 g/dL (5.8-8.3)
--- NOTE | 2017-04-27 08:22 | CP.PCM.PN ---
Subjective - Date & Time of Evaluation Date of Evaluation: 04/27/17 Time of Evaluation: 08:17 - Subjective Subjective: Surgery progress note for . Patient seen and examined at bedside. Patient resting comfortably in bed with no new complaints at this time. Patient says she wants to get out of bed and walk today but wants help as she usually needs a cane to ambulate. She reports feeling like she needs to pass gas but is afraid to push it out. Patient denies having a BM yet, fever, chills, nausea, vomiting, leg pain, chest pain, and SOB. Objective - Vital Signs/Intake and Output Vital Signs (last 24 hours): Temp Pulse Resp BP Pulse Ox 98.7 F 88 16 163/78 H 97 04/26/17 16:38 04/26/17 16:38 04/26/17 16:38 04/26/17 16:38 04/26/17 16:38 Intake and Output: 04/27/17 04/27/17 06:59 18:59 Intake Total 2000 Output Total 450 Balance 1550 - Medications Medications: Current Medications Acetaminophen (Tylenol 325mg Tab) 650 mg PO Q4 PRN PRN Reason: Fever >100.4 F Heparin Sodium (Porcine) (Heparin) 5,000 units SC 0600,1800 STONE PRN Reason: Protocol Last Admin: 04/27/17 05:44 Dose: 5,000 units Hydromorphone HCl (Dilaudid) 2 mg IVP Q4H PRN PRN Reason: Pain, severe (8-10) Last Admin: 04/27/17 04:01 Dose: 2 mg Sodium Chloride (Sodium Chloride 0.9%) 1,000 mls @ 130 mls/hr IV .Q7H42M [facility] Last Admin: 04/27/17 06:29 Dose: Not Given Aztreonam (Azactam 1 Gm) 100 mls @ 100 mls/hr IV Q8 STONE PRN Reason: Protocol Stop: 05/04/17 15:10 Last Admin: 04/27/17 05:44 Dose: 100 mls/hr Metronidazole (Flagyl) 500 mg in 100 mls @ 100 mls/hr IVPB Q8 STONE PRN Reason: Protocol Stop: 05/04/17 22:01 Last Admin: 04/27/17 05:44 Dose: 100 mls/hr Insulin Human Regular (Humulin R High) 0 units SC ACHS STONE PRN Reason: Protocol Last Admin: 04/27/17 05:53 Dose: Not Given Ketorolac Tromethamine (Toradol) 15 mg IVP Q4 PRN PRN Reason: Pain, moderate (4-7) Ondansetron HCl (Zofran Inj) 4 mg IVP Q4H PRN PRN Reason: Nausea/Vomiting Last Admin: 04/26/17 17:38 Dose: 4 mg Ondansetron HCl (Zofran Inj) 4 mg IVP ONCE PRN PRN Reason: Nausea/Vomiting Pantoprazole Sodium (Protonix Inj) 40 mg IVP DAILY [facility] Last Admin: 04/26/17 09:47 Dose: 40 mg - Labs Labs: 04/27/17 07:30 04/26/17 06:42 PT 10.4 Seconds (9.9-11.8) 04/26/17 09:56 INR 0.96 (0.93-1.08) 04/26/17 09:56 APTT 27.1 Seconds (23.7-30.8) 04/26/17 09:56 - Constitutional Appears: Non-toxic, No Acute Distress - Head Exam Head Exam: NORMAL INSPECTION - Eye Exam Eye Exam: EOMI - ENT Exam Additional comments: NG tube in place with 500 cc output - Respiratory Exam Respiratory Exam: NORMAL BREATHING PATTERN. absent: Accessory Muscle Use, Wheezes, Respiratory Distress - Cardiovascular Exam Cardiovascular Exam: REGULAR RHYTHM. absent: Bradycardia, Tachycardia - GI/Abdominal Exam GI & Abdominal Exam: Soft, Tenderness (appropriate post op TTP ) Additional comments: Obese abdomen with abdominal binder in place Bandage covering incision site clean, dry, and intact - Exam Additional comments: Scott in place - Extremities Exam Extremities Exam: Pedal Edema. absent: Calf Tenderness - Neurological Exam Neurological Exam: Alert, Awake - Psychiatric Exam Psychiatric exam: Normal Affect, Normal Mood - Skin Skin Exam: Dry, Normal Color, Warm Assessment and Plan - Assessment and Plan (Free Text) Assessment: 62F s/p exploratory laparotomy with lysis of adhesions and small bowel resection with [id number] anastamosis, POD#1 Plan: - analgesics - antibiotics - zofran prn - heparin for DVT ppx - OOB with physical therapy - discontinue scott - discontinue NG tube in PM - monitor for BM - f/u surgical specimen path - ice chips for dry mouth - further recs per
--- NOTE | 2017-04-27 14:39 | PN ---
DATE: 04/27/2017 SUBJECTIVE: The patient is in bed in no acute distress. PHYSICAL EXAMINATION: VITAL SIGNS: Temperature is 98, blood pressure is 111/70, respiratory rate of 16. HEENT: Unremarkable. NECK: Supple. LUNGS: Have decreased breath sounds. HEART: Normal S1 and S2. ABDOMEN: Soft and nontender. LABORATORY EXAMINATION: Reveals a white count of 14,000, hemoglobin of 12, and platelets of 249. Chemistries reveals a BUN of 14, creatinine 0.7. Microbiology reveals the blood culture and urine cultures are negative. Dr. Han Phan's progress note is reviewed from today. ASSESSMENT AND PLAN: A 62-year-old female with hypertension, diabetes, obesity, neuropathy, ALLERGIC TO PENICILLIN, and small bowel obstruction. The patient is status post exploratory laparotomy, lysis of adhesion, postop day #1, on Azactam and Flagyl. We will follow with you. Carlitos Toro MD
--- NOTE | 2017-04-27 17:55 | PN ---
SUBJECTIVE: I saw the patient resting comfortably in bed this morning. She had a 5-hour operation for small bowel obstruction and multiple adhesions. She is resting comfortably in bed and G-tube in place. She said she feels a little bit better. It is not as bad. She is passing a little gas through the mouth, not through the rectum yet. She feels that they did help her. She is started on Azactam, Dilaudid, Flagyl, heparin, insulin, Protonix, IV fluids, Toradol, Tylenol, Zofran. PHYSICAL EXAMINATION: VITAL SIGNS: 98.5 temperature, 84 pulse, 111/72 blood pressure, 20 respiratory rate and 93% to 97% O2 saturation on 3 L nasal canula. HEENT: Her head is atraumatic and normocephalic. NG tube in place. Throat is dry. NECK: Supple. HEART: Regular rate. LUNGS: Decreased breath sounds. Poor inspiration but clear to auscultation bilaterally. No wheezes, no rhonchi, no rales. She has incentive spirometry which I told her to use every hour. She tells me she is trying to use it. ABDOMEN: Completely bandaged. Can hear much bowel sounds, but she is comfortable. No apparent guarding or rebound. EXTREMITIES: No edema. She is on antibiotics, and she did have surgeries. LABORATORY DATA: She has 14 white count, hemoglobin 12.7, hematocrit 39.9, platelets are 249. She has 140 sodium, potassium 4, BUN is 14, creatinine is 0.7, GFR is , sugar is 111, calcium is 8.7, total bilirubin is 0.6, AST is 24, ALT is 78. Total protein is 6.5. Urine is clean. IMPRESSION: Small bowel obstruction, abdominal pain, diabetes, and lots of adhesions. She is being seen by surgery, cardiology and infectious disease. We will continue with aggressive treatment and care. We will check her labs tomorrow. Chano Art DO MTDBrandyn
[2017-04-28] MEDS: metroNIDAZOLE IV 500 mg/100 ml 500 MG/100 ML BAG IVPB SCH ×3 (05:37→22:01)
[2017-04-28] MEDS: HYDROmorphone 2 mg/ml ISec IVP PRN ×3 (05:47→22:00)
[2017-04-28] MEDS: Sodium Chloride 0.9% 1,000 ML IV SCH ×4 (06:23→15:03)
[2017-04-28] MEDS: Aztreonam 1 Gm in NS 100mL 100 ML IV SCH ×3 (07:07→22:01)
[2017-04-28] MEDS: Insulin Reg-HIGH-Coverage SC SCH ×3 (07:30→16:30)
[2017-04-28 08:07] LABS: HEMATOCRIT 35.8 % (36.0-48.0); MEAN CELL VOLUME 91.3 fl (80.0-105.0); MEAN CORPUSCULAR HEMOGLOBIN 28.3 pg (25.0-35.0); MEAN PLATELET VOLUME 11.6 fl (7.0-11.0); RED CELL DISTRIBUTION WIDTH 14.8 % (11.5-14.5); WHITE BLOOD COUNT 11.1 10^3/ul (4.5-11.0)
[2017-04-28 08:23] LABS: ALB/GLOB RATIO 1.1 (1.1-1.8); ALKALINE PHOSPHATASE 71 U/L (38-126); ALT/SGPT 43 U/L (7-56); AST/SGOT 24 U/L (14-36); BILIRUBIN,TOTAL 0.6 mg/dL (0.2-1.3); BLOOD UREA NITROGEN 18 mg/dL (7-21); CALCIUM 8.5 mg/dL (8.4-10.5); CARBON DIOXIDE 26 mmol/L (21-33); CHLORIDE 106 mmol/L (95-110); GFR AFRICAN-AMERICAN > 60; GLUCOSE,RANDOM 98 mg/dL (70-110); POTASSIUM 3.9 mmol/L (3.6-5.0); SODIUM 140 mmol/L (132-148)
--- NOTE | 2017-04-28 08:54 | CP.PCM.PN ---
Subjective - Date & Time of Evaluation Date of Evaluation: 04/28/17 Time of Evaluation: 08:44 - Subjective Subjective: Surgery progress note for Dr. Smipson Patient seen and examined at bedside. Patient doing well with no new complaints at this time. Patient says she is having some abdominal pain but it is well controlled with analgesics and the abdominal binder. Patient says she has been using her incentive spirometer 3-4x per hour. She denies flatus and BM since surgery. Patient says she got out of bed yesterday with the help of PT. Patient denies nausea, vomiting, diarrhea, chest pain, SOB, and LE pain. Objective - Vital Signs/Intake and Output Vital Signs (last 24 hours): Temp Pulse Resp BP Pulse Ox 98.0 F 95 H 22 124/75 98 04/27/17 16:00 04/27/17 16:00 04/27/17 16:00 04/27/17 16:00 04/27/17 16:00 Intake and Output: 04/28/17 04/28/17 06:59 18:59 Intake Total 0 1810 Output Total 200 150 Balance -200 1660 - Medications Medications: Current Medications Acetaminophen (Tylenol 325mg Tab) 650 mg PO Q4 PRN PRN Reason: Fever >100.4 F Heparin Sodium (Porcine) (Heparin) 5,000 units SC 0600,1800 STONE PRN Reason: Protocol Last Admin: 04/28/17 05:37 Dose: 5,000 units Hydromorphone HCl (Dilaudid) 2 mg IVP Q4H PRN PRN Reason: Pain, severe (8-10) Last Admin: 04/28/17 05:47 Dose: 2 mg Sodium Chloride (Sodium Chloride 0.9%) 1,000 mls @ 130 mls/hr IV .Q7H42M [facility] Last Admin: 04/28/17 06:23 Dose: 130 mls/hr Aztreonam (Azactam 1 Gm) 100 mls @ 100 mls/hr IV Q8 STONE PRN Reason: Protocol Stop: 05/04/17 15:10 Last Admin: 04/28/17 07:07 Dose: 100 mls/hr Metronidazole (Flagyl) 500 mg in 100 mls @ 100 mls/hr IVPB Q8 STONE PRN Reason: Protocol Stop: 05/04/17 22:01 Last Admin: 04/28/17 05:37 Dose: 100 mls/hr Insulin Human Regular (Humulin R High) 0 units SC ACHS STONE PRN Reason: Protocol Last Admin: 04/27/17 23:14 Dose: Not Given Ketorolac Tromethamine (Toradol) 15 mg IVP Q4 PRN PRN Reason: Pain, moderate (4-7) Last Admin: 04/27/17 20:42 Dose: 15 mg Ondansetron HCl (Zofran Inj) 4 mg IVP Q4H PRN PRN Reason: Nausea/Vomiting Last Admin: 04/26/17 17:38 Dose: 4 mg Ondansetron HCl (Zofran Inj) 4 mg IVP ONCE PRN PRN Reason: Nausea/Vomiting Pantoprazole Sodium (Protonix Inj) 40 mg IVP DAILY [facility] Last Admin: 04/27/17 11:00 Dose: 40 mg - Labs Labs: 04/28/17 07:40 04/28/17 07:40 PT 10.4 Seconds (9.9-11.8) 04/26/17 09:56 INR 0.96 (0.93-1.08) 04/26/17 09:56 APTT 27.1 Seconds (23.7-30.8) 04/26/17 09:56 - Constitutional Appears: Non-toxic, No Acute Distress - Head Exam Head Exam: NORMAL INSPECTION - Eye Exam Eye Exam: EOMI - ENT Exam Additional comments: NG tube in place with 110 cc output in last 12 hours - Respiratory Exam Respiratory Exam: NORMAL BREATHING PATTERN. absent: Accessory Muscle Use, Wheezes, Respiratory Distress - Cardiovascular Exam Cardiovascular Exam: REGULAR RHYTHM. absent: Bradycardia, Tachycardia - GI/Abdominal Exam GI & Abdominal Exam: Soft, Tenderness (Appropriate post op TTP). absent: Distended Additional comments: Midline incision with magda in place; clean, dry, intact; bandages changed - Extremities Exam Extremities Exam: Pedal Edema. absent: Calf Tenderness - Neurological Exam Neurological Exam: Alert, Awake - Psychiatric Exam Psychiatric exam: Normal Affect, Normal Mood - Skin Skin Exam: Dry, Intact, Normal Color, Warm Assessment and Plan - Assessment and Plan (Free Text) Assessment: 62F s/p exploratory laparotomy with lysis of adhesions and small bowel resection with [id number] anastamosis, POD#2 Plan: - analgesics and abdominal binder to help with pain - antibiotics - zofran prn - heparin for DVT ppx - OOB with physical therapy - NG tube in place with 110cc over 12 hours - monitor for BM - f/u surgical specimen path - ice chips for dry mouth - further recs per Dr. Calvin Phan, PGY1
--- NOTE | 2017-04-28 13:07 | PN ---
SUBJECTIVE: She is doing quite well this morning. She is sitting out of bed to chair. NG tube is still in and she is still on IV medications. She has got the NG tube in, but she is comfortable. She is using breathing She sounds good. There is pain, but is medicated and it is a different kind of pain, she is feeling better. No gas yet. MEDICATIONS: She is on Azactam, Dilaudid, Flagyl, heparin, insulin coverage, Protonix, IV fluids, Toradol, Tylenol and Zofran. PHYSICAL EXAMINATION: VITAL SIGNS: She has a 98.3 temperature, 90 pulse, 112/46 blood pressure, 19 respiratory rate and 96% O2 sat on room air. HEENT: Head is atraumatic and normocephalic. NG tube in place. Mouth is moist. NECK: Supple. HEART: Regular rate. LUNGS: Decreased breath sounds, but very clear. No wheezes. No rhonchi. No rales. ABDOMEN: No bowel sounds yet. She is all bandaged, but mildly distended. EXTREMITIES: No edema. LABORATORY DATA: She has 11.1 white count, better; 11.1 hemoglobin; 35.8 hematocrit with 215 platelets. She has 140 sodium, potassium of 3.9, BUN is 18, creatinine is 0.7, GFR is greater than 60, sugar is 98, calcium is 8.5. Total bili is 0.6, AST is 24, ALT is 43, alk phos 71. Total protein 6.0, albumin is 3.2 and globulin 2.8. Micro shows no growth. She is being seen by surgery and infectious disease, although I think she is doing quite well. She is here with a small-bowel obstruction, abdominal pain, diabetes. She is status post exploratory laparotomy with adhesions, small-bowel resection. Continue with treatment and care. Hopefully, in the next 24 hours, we will get the NG tube out. We will check her labs tomorrow. I like that she is out of bed to chair, and I think she will be very well. Continue with aggressive treatment and care. Chano Art DO [facility] # [id number] MTDD
--- NOTE | 2017-04-28 14:40 | PN ---
DATE: 04/28/2017 SUBJECTIVE: The patient is in bed, in no acute distress. PHYSICAL EXAMINATION: VITAL SIGNS: Temperature is 98, blood pressure is 112/40, respiratory rate of 22, heart rate of 95. HEENT: Unremarkable. NECK: Supple. LUNGS: Have decreased breath sounds. HEART: Normal S1, S2. ABDOMEN: Soft, nontender. LABORATORY EXAMINATION: Reveals the patient's white count is down to 11,000, hemoglobin of 11 and platelets of 215. BUN of 18 creatinine of 0.7 and blood cultures are negative. Urine cultures are negative. The patient is on Azactam and Flagyl. ASSESSMENT AND PLAN: This is a 62-year-old female with hypertension, diabetes, neuropathy, ALLERGIC TO PENICILLIN, small bowel obstruction status post exploratory laparotomy, lysis of the adhesion, postop day #2 of Azactam and Flagyl. The patient is doing much better. THE PATIENT DOES DESCRIBE TYPE 1 ALLERGY TO PENICILLIN, so we would continue the Azactam and Flagyl, once the patient has bowel movements and a white count is normalized we will discontinue the antibiotics. Carlitos Toro MD
--- NOTE | 2017-04-28 22:37 | CP.PCM.PN ---
Subjective - Date & Time of Evaluation Date of Evaluation: 04/28/17 Time of Evaluation: 22:37 - Subjective Subjective: S:Patient was seen at bedside. She is asleep now. As per nurse , her blood glucose was 77 mg %.As per patient that is low for her. Patient has been on NS @ 130 CC / HR. It was requested to change IV fluid to D5NS. Pertinent medical record was reviewed. O Last Vital Signs 3 Temp 97.5 F L 04/28/17 16:00 Pulse 98 H 04/28/17 16:00 Resp 20 04/28/17 16:00 BP 130/76 04/28/17 16:00 Pulse Ox 95 04/28/17 16:00 Stable. Asleep. LUNGS:Normal breathing pattern. A: Hypoglycemia. P:Will change IV Fluid to D5NS at same rate. Objective - Vital Signs/Intake and Output Vital Signs (last 24 hours): Temp Pulse Resp BP Pulse Ox 97.5 F L 98 H 20 130/76 95 04/28/17 16:00 04/28/17 16:00 04/28/17 16:00 04/28/17 16:00 04/28/17 16:00 Intake and Output: 04/28/17 04/29/17 18:59 06:59 Intake Total 3240 Output Total 580 Balance 2660 - Medications Medications: Current Medications Acetaminophen (Tylenol 325mg Tab) 650 mg PO Q4 PRN PRN Reason: Fever >100.4 F Heparin Sodium (Porcine) (Heparin) 5,000 units SC 0600,1800 STONE PRN Reason: Protocol Last Admin: 04/28/17 18:02 Dose: 5,000 units Hydromorphone HCl (Dilaudid) 2 mg IVP Q4H PRN PRN Reason: Pain, severe (8-10) Last Admin: 04/28/17 22:00 Dose: 2 mg Sodium Chloride (Sodium Chloride 0.9%) 1,000 mls @ 130 mls/hr IV .Q7H42M [facility] Last Admin: 04/28/17 15:03 Dose: 130 mls/hr Aztreonam (Azactam 1 Gm) 100 mls @ 100 mls/hr IV Q8 STONE PRN Reason: Protocol Stop: 05/04/17 15:10 Last Admin: 10/15/17 22:01 Dose: 100 mls/hr Metronidazole (Flagyl) 500 mg in 100 mls @ 100 mls/hr IVPB Q8 STONE PRN Reason: Protocol Stop: 05/04/17 22:01 Last Admin: 04/28/17 22:01 Dose: 100 mls/hr Insulin Human Regular (Humulin R High) 0 units SC ACHS STONE PRN Reason: Protocol Last Admin: 04/28/17 16:30 Dose: Not Given Ketorolac Tromethamine (Toradol) 15 mg IVP Q4 PRN PRN Reason: Pain, moderate (4-7) Last Admin: 04/28/17 10:49 Dose: 15 mg Ondansetron HCl (Zofran Inj) 4 mg IVP Q4H PRN PRN Reason: Nausea/Vomiting Last Admin: 04/26/17 17:38 Dose: 4 mg Ondansetron HCl (Zofran Inj) 4 mg IVP ONCE PRN PRN Reason: Nausea/Vomiting Pantoprazole Sodium (Protonix Inj) 40 mg IVP DAILY [facility] Last Admin: 04/28/17 10:50 Dose: 40 mg - Labs Labs: 04/28/17 07:40 04/28/17 07:40 PT 10.4 Seconds (9.9-11.8) 04/26/17 09:56 INR 0.96 (0.93-1.08) 04/26/17 09:56 APTT 27.1 Seconds (23.7-30.8) 04/26/17 09:56
[2017-04-28] MEDS: Dextrose 5%/0.9% NS 1,000 ML IV SCH (23:04)
[2017-04-29] MEDS: Insulin Reg-HIGH-Coverage SC SCH ×4 (01:45→16:22)
[2017-04-29] MEDS: HYDROmorphone 2 mg/ml ISec IVP PRN ×5 (04:35→22:06)
[2017-04-29] MEDS: metroNIDAZOLE IV 500 mg/100 ml 500 MG/100 ML BAG IVPB SCH ×3 (05:00→22:01)
[2017-04-29] MEDS: Aztreonam 1 Gm in NS 100mL 100 ML IV SCH ×3 (06:12→23:00)
[2017-04-29 07:07] LABS: MEAN CELL VOLUME 89.7 fl (80.0-105.0); MEAN CORPUSCULAR HEMOGLOBIN 28.2 pg (25.0-35.0); MEAN CORPUSCULAR HGB CONC 31.4 g/dl (31.0-37.0); MEAN PLATELET VOLUME 11.9 fl (7.0-11.0); RED CELL DISTRIBUTION WIDTH 14.7 % (11.5-14.5); WHITE BLOOD COUNT 9.1 10^3/ul (4.5-11.0)
[2017-04-29 07:34] LABS: ALKALINE PHOSPHATASE 64 U/L (38-126); ALT/SGPT 32 U/L (7-56); AST/SGOT 21 U/L (14-36); BILIRUBIN,TOTAL 0.4 mg/dL (0.2-1.3); BLOOD UREA NITROGEN 12 mg/dL (7-21); CALCIUM 8.1 mg/dL (8.4-10.5); CARBON DIOXIDE 25 mmol/L (21-33); CHLORIDE 108 mmol/L (98-107); GFR AFRICAN-AMERICAN > 60; GLUCOSE,RANDOM 123 mg/dL (70-110); POTASSIUM 3.4 mmol/L (3.6-5.0); SODIUM 142 mmol/L (132-148); TOTAL PROTEIN 5.8 g/dL (5.8-8.3)
--- NOTE | 2017-04-29 12:12 | CP.PCM.PN ---
Subjective - Date & Time of Evaluation Date of Evaluation: 04/29/17 Time of Evaluation: 12:09 - Subjective Subjective: Surgery progress note for Patient seen and examined at bedside. Patient doing well with no new complaints at this time. Patient says she is having some abdominal pain but it is well controlled with analgesics and the abdominal binder. Patient says she has been using her incentive spirometer multiple times per hour. She denies flatus and BM since surgery. Patient has been OOB with the help of PT. Patient denies nausea, vomiting, diarrhea, chest pain, SOB, and LE pain. Objective - Vital Signs/Intake and Output Vital Signs (last 24 hours): Temp Pulse Resp BP Pulse Ox 98.1 F 91 H 20 129/70 94 L 04/29/17 07:46 04/29/17 07:46 04/29/17 07:46 04/29/17 07:46 04/29/17 07:46 Intake and Output: 04/29/17 04/29/17 06:59 18:59 Output Total 550 Balance -550 - Medications Medications: Current Medications Acetaminophen (Tylenol 325mg Tab) 650 mg PO Q4 PRN PRN Reason: Fever >100.4 F Heparin Sodium (Porcine) (Heparin) 5,000 units SC 0600,1800 STONE PRN Reason: Protocol Last Admin: 04/29/17 06:12 Dose: 5,000 units Hydromorphone HCl (Dilaudid) 2 mg IVP Q4H PRN PRN Reason: Pain, severe (8-10) Last Admin: 04/29/17 08:50 Dose: 2 mg Aztreonam (Azactam 1 Gm) 100 mls @ 100 mls/hr IV Q8 SOTNE PRN Reason: Protocol Stop: 05/04/17 15:10 Last Admin: 04/29/17 06:12 Dose: 100 mls/hr Metronidazole (Flagyl) 500 mg in 100 mls @ 100 mls/hr IVPB Q8 STONE PRN Reason: Protocol Stop: 05/04/17 22:01 Last Admin: 04/29/17 05:00 Dose: 100 mls/hr Dextrose/Sodium Chloride (Dextrose 5%/0.9% Ns 1000 Ml) 1,000 mls @ 130 mls/hr IV .Q7H42M [facility] Last Admin: 04/28/17 23:04 Dose: 130 mls/hr Insulin Human Regular (Humulin R High) 0 units SC ACHS STONE PRN Reason: Protocol Last Admin: 04/29/17 07:48 Dose: Not Given Ketorolac Tromethamine (Toradol) 15 mg IVP Q4 PRN PRN Reason: Pain, moderate (4-7) Last Admin: 04/28/17 10:49 Dose: 15 mg Ondansetron HCl (Zofran Inj) 4 mg IVP Q4H PRN PRN Reason: Nausea/Vomiting Last Admin: 04/26/17 17:38 Dose: 4 mg Ondansetron HCl (Zofran Inj) 4 mg IVP ONCE PRN PRN Reason: Nausea/Vomiting Pantoprazole Sodium (Protonix Inj) 40 mg IVP DAILY [facility] Last Admin: 04/29/17 09:22 Dose: 40 mg - Labs Labs: 04/29/17 06:51 04/29/17 06:47 PT 10.4 Seconds (9.9-11.8) 04/26/17 09:56 INR 0.96 (0.93-1.08) 04/26/17 09:56 APTT 27.1 Seconds (23.7-30.8) 04/26/17 09:56 - Constitutional Appears: Non-toxic, No Acute Distress - Head Exam Head Exam: NORMAL INSPECTION - Eye Exam Eye Exam: EOMI - ENT Exam ENT Exam: Mucous Membranes Moist - Respiratory Exam Respiratory Exam: NORMAL BREATHING PATTERN. absent: Accessory Muscle Use, Wheezes, Respiratory Distress - Cardiovascular Exam Cardiovascular Exam: REGULAR RHYTHM. absent: Bradycardia, Tachycardia - GI/Abdominal Exam GI & Abdominal Exam: Soft, Tenderness (appropriate post op TTP). absent: Distended Additional comments: Midline incision with magda in place; clean, dry, intact; bandage in place - Extremities Exam Extremities Exam: absent: Calf Tenderness - Neurological Exam Neurological Exam: Alert, Awake - Psychiatric Exam Psychiatric exam: Normal Affect, Normal Mood - Skin Skin Exam: Dry, Normal Color, Warm Assessment and Plan - Assessment and Plan (Free Text) Assessment: 62F s/p exploratory laparotomy with lysis of adhesions and small bowel resection with [id number] anastamosis, POD#3 Plan: - analgesics - abdominal binder - removed NG tube this AM - advanced to CLD - antibiotics - zofran prn - IVF - heparin for DVT ppx - OOB with physical therapy - monitor for BM - f/u surgical specimen path - ice chips for dry mouth - further recs per Dr. Calvin Phan, PGY1
--- NOTE | 2017-04-29 14:45 | PN ---
DATE: SUBJECTIVE: I saw Daksha in bed this morning, she slept fairly well. She has got the NG tube in. There is mild discomfort in the abdomen. She is getting medicated and is better than yesterday. She is using incentive spirometry and she is breathing well. No chest pain or shortness of breath, occasional abdominal pain. She is being seen by Cardio, Infectious Disease, and Surgery. PHYSICAL EXAMINATION: VITAL SIGNS: Temperature 98.1, pulse 91, blood pressure 129/70, respiratory rate 20, and 94% to 95% O2 saturation on room air. HEENT: Head is atraumatic and normocephalic. NG tube in place. Throat is moist. NECK: Supple. HEART: Regular rate. LUNGS: Decreased breath sounds bilaterally, but clear. Poor inspiration, but she has advanced incentive spirometry and no rales, rhonchi or wheezes auscultated. ABDOMEN: Mildly distended, but soft. There are bowel sounds now, there were no bowel sounds yesterday. She also tells me she feels rumbling, mild tenderness that is from the surgery; otherwise, it is feeling better overall. EXTREMITIES: Have no edema. LABORATORY DATA: She has 9.1 white count, 11 hemoglobin, 35 hematocrit with 223 platelets. 142 sodium, potassium is 3.4, I will replace some potassium today. She has a BUN of 12, creatinine 0.6, GFR is greater than 60, sugar is 123, calcium is 8.1, total bilirubin is 0.4, AST is 21, ALT is 32, alkaline phosphatase is 64, and total protein is 5.8. MEDICATIONS: She is on Azactam, dextrose, Dilaudid, Flagyl, heparin, insulin, Protonix, Toradol, Tylenol, and Zofran. ASSESSMENT AND PLAN: She is being seen by Infectious Disease and Surgery. I hope we could take the nasogastric tube out today and replace the potassium for her. We will get her sitting out of bed, I think it is important. Continue to encourage incentive spirometry as per Surgery. We will check her labs tomorrow. Chano Art DO
[2017-04-29] MEDS: Dextrose 5%/0.9% NS 1,000 ML IV SCH (17:20)
--- NOTE | 2017-04-29 18:22 | OP ---
PROCEDURE DATE: INDICATION: The patient has a complex surgical history that was noted, however, had persistent pain in the right lower quadrant. CAT scan revealed there were several loops of bowel directly beneath the incision. SURGEON: Rodrigue Simpson MD OVERCOILER: Dr. Cuevas and Dr. Phan. DESCRIPTION OF PROCEDURE: In the operating room, the upper midline incision was made and the old incision was then accessed. Immediately obvious were loops of bowel that were stuck to the incision as seen pretty much on the CAT scan. Circumferential dissection began above the left and right side and eventually we were able to get around the adhesions and separate them. It was a very difficult dissection. Several enterotomies were made during this. These were done at difficult lines of dissection. These were closed with silk to prevent contamination. Coming to the pelvis, there were adhesions to the pelvis that were identified. There were decompressed loops of bowel there and eventually we were able to get a circumferential dissection to remove the small bowel from the ligament of Treitz to the distal ileum. Lysing the mass that was in the top eventually came to a point where 3 loops of bowel were meeting and seemed to be crossing each other. The proximal and distal ends were identified, a third loop was then lysed away from this and this allowed us to see the pretzel like formation that was left behind. About 2 feet of bowel was removed by dividing it proximally and distally with a MARY and taking the mesentery with the Harmonic scalpel. Clearly, the mesentery was examined and it lined up very nicely. The MARY was run into the ends and it was fired with a TA, it was fired to close the defect. It was sutured with a Marjorie stitch. The abdomen was explored. There was nothing untoward. The bowel was then examined from the ligament of Treitz to the ileocecal valve. There was nothing untoward. There were no other leaks. The abdomen was cleaned and dried. It was then closed with a running PDS above and below and tied in the middle with a buried knot, the subcutaneous tissues with Vicryl and magda. The patient taken to recovery room in good condition. All the sponge, needle, and counts were declared correct. Rodrigue Simpson MD
[2017-04-30] MEDS: Aztreonam 1 Gm in NS 100mL 100 ML IV SCH ×3 (05:17→23:05)
[2017-04-30] MEDS: HYDROmorphone 2 mg/ml ISec IVP PRN ×3 (05:49→14:23)
[2017-04-30] MEDS: metroNIDAZOLE IV 500 mg/100 ml 500 MG/100 ML BAG IVPB SCH ×3 (06:48→21:45)
[2017-04-30 07:35] LABS: HEMATOCRIT 35.9 % (36.0-48.0); MEAN CELL VOLUME 89.8 fl (80.0-105.0); MEAN CORPUSCULAR HEMOGLOBIN 28.5 pg (25.0-35.0); MEAN CORPUSCULAR HGB CONC 31.8 g/dl (31.0-37.0); MEAN PLATELET VOLUME 11.7 fl (7.0-11.0); RED CELL DISTRIBUTION WIDTH 14.3 % (11.5-14.5); WHITE BLOOD COUNT 10.6 10^3/ul (4.5-11.0)
[2017-04-30] MEDS: Insulin Reg-HIGH-Coverage SC SCH ×3 (07:43→17:10)
[2017-04-30 07:49] LABS: ALKALINE PHOSPHATASE 64 U/L (38-126); ALT/SGPT 30 U/L (7-56); AST/SGOT 20 U/L (14-36); BILIRUBIN,TOTAL 0.5 mg/dL (0.2-1.3); BLOOD UREA NITROGEN 6 mg/dL (7-21); CALCIUM 8.2 mg/dL (8.4-10.5); CARBON DIOXIDE 26 mmol/L (21-33); CHLORIDE 106 mmol/L (98-107); GFR AFRICAN-AMERICAN > 60; GLUCOSE,RANDOM 119 mg/dL (70-110); POTASSIUM 3.3 mmol/L (3.6-5.0); SODIUM 139 mmol/L (132-148); TOTAL PROTEIN 5.8 g/dL (5.8-8.3)
[2017-04-30] MEDS ORDERED: Potassium Chloride 20 mEq ER Tab PO ONE (08:07)
--- NOTE | 2017-04-30 08:28 | PN ---
SUBJECTIVE: I saw her resting comfortably in bed. The NG tube is out. She is telling me the stomach is rumbling and rumbling. She is taking liquids and in no problems. She is also walking in the hallway and trying to get the bout to move. Also, she is using an incentive spirometry very well. She is in good spirits, less pain. Overall doing well. No drains in the abdomen. MEDICATIONS: She is on Azactam, dextrose, Dilaudid, Flagyl, heparin, insulin, Protonix, Toradol, Tylenol, and Zofran. PHYSICAL EXAMINATION: VITAL SIGNS: 98.4 temp, 95 pulse, 131/80 blood pressure, 20 respiratory rate, and 95% O2 sat on room air. HEENT: Head is atraumatic and normocephalic. HEART: Regular rate. LUNGS: Clear to auscultation, but decreased breath sounds. ABDOMEN: Soft. Positive bowel sounds; nontender at this time. No guarding. No rebound. EXTREMITIES: Have no edema. LABORATORY DATA: She has a 10.6 white count, 11.4 hemoglobin, 35.9 hematocrit with a 228 platelets. 139 sodium, potassium is 3.3, I will give her some potassium. BUN of 6, creatinine 0.5, GFR is greater than 60, sugar is 119, calcium is 8.2, total bilirubin is 0.5, AST is 20, ALT is 30, alkaline phosphatase is 64, and total protein is 5.8. No growth on micro. She is being seen by Surgery, Infectious Disease, Cardiology. Continue with treatment and care, slowly increased the diet, IV antibiotics, walking as per Surgery. I will check her labs tomorrow. Chano Art DO
--- NOTE | 2017-04-30 10:58 | CP.PCM.PN ---
Subjective - Date & Time of Evaluation Date of Evaluation: 04/30/17 Time of Evaluation: 10:41 - Subjective Subjective: Patient seen and examined at bedside. Patient resting comfortably in bed with no new complaints at this time. Patient says she is having some pain when trying to move around but it is well controlled with analgesics and the abdominal binder helps as well. Patient says she is not passing gas or having BMs yet. Patient has been OOB with PT and using her incentive spirometer. She says she is tolerating her diet. She denies fever, chills, nausea, vomiting, chest pain, SOB, and leg pain. Objective - Vital Signs/Intake and Output Vital Signs (last 24 hours): Temp Pulse Resp BP Pulse Ox 98 F 97 H 20 127/63 96 04/30/17 08:12 04/30/17 08:12 04/30/17 08:12 04/30/17 08:12 04/30/17 08:12 Intake and Output: 04/30/17 04/30/17 06:59 18:59 Intake Total 800 Output Total 450 Balance 350 - Medications Medications: Current Medications Acetaminophen (Tylenol 325mg Tab) 650 mg PO Q4 PRN PRN Reason: Fever >100.4 F Al Hydrox/Mg Hydrox/Simethicone (Maalox Plus 30 Ml) 30 ml PO DAILY PRN PRN Reason: Indigestion / Heartburn Heparin Sodium (Porcine) (Heparin) 5,000 units SC 0600,1800 [facility] PRN Reason: Protocol Last Admin: 04/30/17 06:48 Dose: 5,000 units Hydromorphone HCl (Dilaudid) 2 mg IVP Q4H PRN PRN Reason: Pain, severe (8-10) Last Admin: 04/30/17 09:48 Dose: 2 mg Aztreonam (Azactam 1 Gm) 100 mls @ 100 mls/hr IV Q8 [facility] PRN Reason: Protocol Stop: 05/04/17 15:10 Last Admin: 04/30/17 05:17 Dose: 100 mls/hr Metronidazole (Flagyl) 500 mg in 100 mls @ 100 mls/hr IVPB Q8 [facility] PRN Reason: Protocol Stop: 05/04/17 22:01 Last Admin: 04/30/17 06:48 Dose: 100 mls/hr Dextrose/Sodium Chloride (Dextrose 5%/0.9% Ns 1000 Ml) 1,000 mls @ 130 mls/hr IV .Q7H42M [facility] Last Admin: 04/29/17 17:20 Dose: 130 mls/hr Insulin Human Regular (Humulin R High) 0 units SC ACHS [facility] PRN Reason: Protocol Last Admin: 04/30/17 07:43 Dose: Not Given Ketorolac Tromethamine (Toradol) 15 mg IVP Q4 PRN PRN Reason: Pain, moderate (4-7) Last Admin: 04/28/17 10:49 Dose: 15 mg Ondansetron HCl (Zofran Inj) 4 mg IVP Q4H PRN PRN Reason: Nausea/Vomiting Last Admin: 04/26/17 17:38 Dose: 4 mg Ondansetron HCl (Zofran Inj) 4 mg IVP ONCE PRN PRN Reason: Nausea/Vomiting Pantoprazole Sodium (Protonix Inj) 40 mg IVP DAILY [facility] Last Admin: 04/30/17 09:41 Dose: 40 mg - Labs Labs: 04/30/17 07:27 04/30/17 07:27 PT 10.4 Seconds (9.9-11.8) 04/26/17 09:56 INR 0.96 (0.93-1.08) 04/26/17 09:56 APTT 27.1 Seconds (23.7-30.8) 04/26/17 09:56 - Constitutional Appears: Non-toxic, No Acute Distress - Head Exam Head Exam: NORMAL INSPECTION - Eye Exam Eye Exam: EOMI - ENT Exam ENT Exam: Mucous Membranes Moist - Respiratory Exam Respiratory Exam: NORMAL BREATHING PATTERN. absent: Accessory Muscle Use, Wheezes, Respiratory Distress - Cardiovascular Exam Cardiovascular Exam: REGULAR RHYTHM. absent: Bradycardia, Tachycardia - GI/Abdominal Exam GI & Abdominal Exam: Soft, Tenderness (appropriate post op tenderness ). absent : Distended Additional comments: Midline incision with magda in place; clean, dry, intact; bandage replaced - Extremities Exam Extremities Exam: absent: Calf Tenderness - Neurological Exam Neurological Exam: Alert, Awake - Psychiatric Exam Psychiatric exam: Normal Affect, Normal Mood - Skin Skin Exam: Dry, Normal Color, Warm Assessment and Plan - Assessment and Plan (Free Text) Assessment: 62F s/p exploratory laparotomy with lysis of adhesions and small bowel resection with [id number] anastamosis, POD#4 Plan: - analgesics - abdominal binder - advanced to FLD - antibiotics - zofran prn - IVF - heparin for DVT ppx - OOB with physical therapy - monitor for Flatus/BM - f/u surgical specimen path - further recs per Dr. Calvin Phan, PGY1
--- NOTE | 2017-04-30 13:10 | CP.PCM.PN ---
Subjective - Date & Time of Evaluation Date of Evaluation: 04/30/17 Time of Evaluation: 12:15 - Subjective Subjective: Comfortable, no fevers. Objective - Vital Signs/Intake and Output Vital Signs (last 24 hours): Temp Pulse Resp BP Pulse Ox 98 F 97 H 20 127/63 96 04/30/17 08:12 04/30/17 08:12 04/30/17 08:12 04/30/17 08:12 04/30/17 08:12 Intake and Output: 04/30/17 04/30/17 06:59 18:59 Intake Total 800 Output Total 450 Balance 350 - Medications Medications: Current Medications Acetaminophen (Tylenol 325mg Tab) 650 mg PO Q4 PRN PRN Reason: Fever >100.4 F Heparin Sodium (Porcine) (Heparin) 5,000 units SC 0600,1800 [facility] PRN Reason: Protocol Last Admin: 04/30/17 06:48 Dose: 5,000 units Hydromorphone HCl (Dilaudid) 2 mg IVP Q4H PRN PRN Reason: Pain, severe (8-10) Last Admin: 04/30/17 09:48 Dose: 2 mg Aztreonam (Azactam 1 Gm) 100 mls @ 100 mls/hr IV Q8 [facility] PRN Reason: Protocol Stop: 05/04/17 15:10 Last Admin: 04/30/17 05:17 Dose: 100 mls/hr Metronidazole (Flagyl) 500 mg in 100 mls @ 100 mls/hr IVPB Q8 [facility] PRN Reason: Protocol Stop: 05/04/17 22:01 Last Admin: 04/30/17 06:48 Dose: 100 mls/hr Dextrose/Sodium Chloride (Dextrose 5%/0.9% Ns 1000 Ml) 1,000 mls @ 130 mls/hr IV .Q7H42M [facility] Last Admin: 04/29/17 17:20 Dose: 130 mls/hr Insulin Human Regular (Humulin R High) 0 units SC ACHS [facility] PRN Reason: Protocol Last Admin: 04/30/17 07:43 Dose: Not Given Ketorolac Tromethamine (Toradol) 15 mg IVP Q4 PRN PRN Reason: Pain, moderate (4-7) Last Admin: 04/28/17 10:49 Dose: 15 mg Ondansetron HCl (Zofran Inj) 4 mg IVP Q4H PRN PRN Reason: Nausea/Vomiting Last Admin: 04/26/17 17:38 Dose: 4 mg Ondansetron HCl (Zofran Inj) 4 mg IVP ONCE PRN PRN Reason: Nausea/Vomiting Pantoprazole Sodium (Protonix Inj) 40 mg IVP DAILY [facility] Last Admin: 04/30/17 09:41 Dose: 40 mg - Labs Labs: 04/30/17 07:27 04/30/17 07:27 PT 10.4 Seconds (9.9-11.8) 04/26/17 09:56 INR 0.96 (0.93-1.08) 04/26/17 09:56 APTT 27.1 Seconds (23.7-30.8) 04/26/17 09:56 - Constitutional Appears: Non-toxic - Head Exam Head Exam: NORMAL INSPECTION - Respiratory Exam Respiratory Exam: Decreased Breath Sounds - Cardiovascular Exam Cardiovascular Exam: +S1, +S2 - GI/Abdominal Exam GI & Abdominal Exam: Soft. absent: Tenderness Assessment and Plan - Assessment and Plan (Free Text) Plan: Assessment S/P systemic inflammatory response syndrome probably from small bowel obstruction S/P ex-lap and adhesiolysis POD #4 HTN DM neuropathy Plan On Azactam and Flagyl; WBC count has normalized; once patient is on regular diet and with good bowel movement, will d/c antibiotics
[2017-04-30] MEDS: Alum-Mag Hydrox-Simethicone Susp (30 mL) PO PRN (14:23)
[2017-04-30] MEDS: HYDROmorphone 1 mg/ml ISec IVP PRN (20:21)
[2017-04-30] MEDS: Albuterol-Ipratrop 3 mg / 0.5 (3 ml) UD IH PRN (20:39)
[2017-04-30] MEDS: Dextrose 5%/0.9% NS 1,000 ML IV SCH (23:09)
[2017-05-01] MEDS: HYDROmorphone 1 mg/ml ISec IVP PRN ×6 (01:40→21:18)
[2017-05-01] MEDS: metroNIDAZOLE IV 500 mg/100 ml 500 MG/100 ML BAG IVPB SCH ×3 (05:38→21:18)
[2017-05-01] MEDS: Aztreonam 1 Gm in NS 100mL 100 ML IV SCH ×3 (06:51→22:35)
[2017-05-01 07:19] LABS: HEMATOCRIT 34.7 % (36.0-48.0); MEAN CELL VOLUME 89.4 fl (80.0-105.0); MEAN CORPUSCULAR HEMOGLOBIN 28.4 pg (25.0-35.0); MEAN CORPUSCULAR HGB CONC 31.7 g/dl (31.0-37.0); MEAN PLATELET VOLUME 11.6 fl (7.0-11.0); RED CELL DISTRIBUTION WIDTH 14.4 % (11.5-14.5); WHITE BLOOD COUNT 11.5 10^3/ul (4.5-11.0)
[2017-05-01] MEDS: Albuterol-Ipratrop 3 mg / 0.5 (3 ml) UD IH PRN ×3 (07:26→19:44)
[2017-05-01 07:33] LABS: ALKALINE PHOSPHATASE 55 U/L (38-126); ALT/SGPT 43 U/L (7-56); AST/SGOT 26 U/L (14-36); BILIRUBIN,TOTAL 0.4 mg/dL (0.2-1.3); BLOOD UREA NITROGEN 3 mg/dL (7-21); CALCIUM 8.3 mg/dL (8.4-10.5); CARBON DIOXIDE 30 mmol/L (21-33); CHLORIDE 105 mmol/L (95-110); GFR AFRICAN-AMERICAN > 60; GLUCOSE,RANDOM 135 mg/dL (70-110); POTASSIUM 3.6 mmol/L (3.6-5.0); SODIUM 139 mmol/L (132-148); TOTAL PROTEIN 5.5 g/dL (5.8-8.3)
[2017-05-01] MEDS: Insulin Reg-HIGH-Coverage SC SCH ×3 (07:43→17:19)
[2017-05-01] MEDS: Dextrose 5%/0.9% NS 1,000 ML IV SCH (09:31)
[2017-05-01] MEDS: Alum-Mag Hydrox-Simethicone Susp (30 mL) PO PRN (09:39)
--- NOTE | 2017-05-01 10:50 | CP.PCM.PN ---
Subjective - Date & Time of Evaluation Date of Evaluation: 05/01/17 Time of Evaluation: 10:47 - Subjective Subjective: Surgery Note for Patient seen and examined at bedside. Patient resting comfortably in bed with no new complaints at this time. Patient says her pain is well controlled with analgesics, and the abdominal binder helps as well. Patient says she is passing gas and had a normal BM this morning. Patient has been OOB with PT and using her incentive spirometer. She says she is tolerating her diet. She denies fever , chills, nausea, vomiting, chest pain, SOB, and leg pain. Objective - Vital Signs/Intake and Output Vital Signs (last 24 hours): Temp Pulse Resp BP Pulse Ox 98.2 F 92 H 18 108/88 97 05/01/17 00:00 05/01/17 00:00 05/01/17 00:00 05/01/17 00:00 05/01/17 00:00 Intake and Output: 05/01/17 05/01/17 06:59 18:59 Intake Total 4380 Output Total 950 Balance 3430 - Medications Medications: Current Medications Acetaminophen (Tylenol 325mg Tab) 650 mg PO Q4 PRN PRN Reason: Fever >100.4 F Al Hydrox/Mg Hydrox/Simethicone (Maalox Plus 30 Ml) 30 ml PO DAILY PRN PRN Reason: Indigestion / Heartburn Last Admin: 05/01/17 09:39 Dose: 30 ml Albuterol/Ipratropium (Duoneb 3 Mg/0.5 Mg (3 Ml) Ud) 3 ml IH [id number] PRN PRN Reason: Shortness of Breath Last Admin: 05/01/17 07:26 Dose: 3 ml Heparin Sodium (Porcine) (Heparin) 5,000 units SC 0600,1800 [facility] PRN Reason: Protocol Last Admin: 05/01/17 05:38 Dose: 5,000 units Hydromorphone HCl (Dilaudid) 1 mg IVP Q4H PRN PRN Reason: Pain, moderate (4-7) Last Admin: 05/01/17 09:30 Dose: 1 mg Aztreonam (Azactam 1 Gm) 100 mls @ 100 mls/hr IV Q8 [facility] PRN Reason: Protocol Stop: 05/04/17 15:10 Last Admin: 05/01/17 06:51 Dose: 100 mls/hr Metronidazole (Flagyl) 500 mg in 100 mls @ 100 mls/hr IVPB Q8 [facility] PRN Reason: Protocol Stop: 05/04/17 22:01 Last Admin: 05/01/17 05:38 Dose: 100 mls/hr Dextrose/Sodium Chloride (Dextrose 5%/0.9% Ns 1000 Ml) 1,000 mls @ 130 mls/hr IV .Q7H42M [facility] Last Admin: 05/01/17 09:31 Dose: 130 mls/hr Insulin Human Regular (Humulin R High) 0 units SC ACHS [facility] PRN Reason: Protocol Last Admin: 04/30/17 17:10 Dose: Not Given Ketorolac Tromethamine (Toradol) 15 mg IVP Q4 PRN PRN Reason: Pain, moderate (4-7) Last Admin: 04/28/17 10:49 Dose: 15 mg Ondansetron HCl (Zofran Inj) 4 mg IVP Q4H PRN PRN Reason: Nausea/Vomiting Last Admin: 04/26/17 17:38 Dose: 4 mg Pantoprazole Sodium (Protonix Inj) 40 mg IVP DAILY [facility] Last Admin: 05/01/17 09:31 Dose: 40 mg - Labs Labs: 05/01/17 06:30 05/01/17 06:30 PT 10.4 Seconds (9.9-11.8) 04/26/17 09:56 INR 0.96 (0.93-1.08) 04/26/17 09:56 APTT 27.1 Seconds (23.7-30.8) 04/26/17 09:56 - Constitutional Appears: Non-toxic, No Acute Distress - Head Exam Head Exam: NORMAL INSPECTION - Eye Exam Eye Exam: EOMI - ENT Exam ENT Exam: Mucous Membranes Moist - Respiratory Exam Respiratory Exam: NORMAL BREATHING PATTERN. absent: Accessory Muscle Use, Wheezes, Respiratory Distress - Cardiovascular Exam Cardiovascular Exam: REGULAR RHYTHM. absent: Bradycardia, Tachycardia - GI/Abdominal Exam GI & Abdominal Exam: Soft, Tenderness (appropriate post op tenderness around incision). absent: Distended Additional comments: Midline incision clean, dry, and intact with magda in place; painted with betadine swab and dressings replaced - Extremities Exam Extremities Exam: absent: Calf Tenderness - Neurological Exam Neurological Exam: Alert, Awake - Psychiatric Exam Psychiatric exam: Normal Affect, Normal Mood - Skin Skin Exam: Dry, Normal Color, Warm Assessment and Plan - Assessment and Plan (Free Text) Assessment: 62F s/p exploratory laparotomy with lysis of adhesions and small bowel resection with [id number] anastamosis, POD#5 Plan: - analgesics - abdominal binder - advanced to consistent carb diet - antibiotics - zofran prn - heparin for DVT ppx - OOB with physical therapy - f/u surgical specimen path - further recs per Dr. Calvin Phan, PGY1
--- NOTE | 2017-05-01 15:29 | PN ---
DATE: 05/01/2017 SUBJECTIVE: I think she is doing quite well, sitting out of bed to chair, and eating her breakfast. She has been having bowel movement. She is in good spirits. She is walking better. I am hoping that we can discharge her in the next 24 hours and may be even today. MEDICATIONS: She is still on Azactam, dextrose, Dilaudid, DuoNeb, Flagyl, heparin, insulin, Maalox, Protonix, Toradol, Tylenol, and Zofran. PHYSICAL EXAMINATION: VITAL SIGNS: 98.2 temp, 92 pulse, 108/88 blood pressure, 18 respiratory rate, and 97% O2 sat on room air. HEENT: Head is atraumatic and normocephalic. Throat is moist. NECK: Supple. HEART: Regular rate. LUNGS: Clear to auscultation. ABDOMEN: With positive bowel sounds. Mildly distended, wrapped up and much better, nontender. No guarding. No rebound just some surgical soreness. EXTREMITIES: Have no edema. LABORATORY DATA: She has 11.5 white count, on antibiotics; 11 hemoglobin, 34.7 hematocrit, and 256 platelets. She has 139 sodium, potassium 3.6, BUN 3, creatinine is 0.5, and GFR is greater than 60. Sugar is 135, calcium is 8.3, total bili is 0.4, AST is 26, ALT is 43, alkaline phosphatase 55, and total protein 5.5. ASSESSMENT AND PLAN: She has been seen by Infectious Disease and Surgery. I will discontinue the antibiotics once she is eating well and having bowel movements. Surgery states await surgical clearance for discharge as postop day 4. Chano Art DO
[2017-05-02] MEDS: HYDROmorphone 1 mg/ml ISec IVP PRN ×6 (01:10→22:35)
[2017-05-02] MEDS: Aztreonam 1 Gm in NS 100mL 100 ML IV SCH (05:51)
[2017-05-02] MEDS: Pantoprazole 40 mg EC Tab PO SCH (05:52)
[2017-05-02] MEDS: Albuterol-Ipratrop 3 mg / 0.5 (3 ml) UD IH PRN (07:28)
[2017-05-02] MEDS: Insulin Reg-HIGH-Coverage SC SCH ×3 (08:00→23:29)
--- NOTE | 2017-05-02 17:00 | CP.PCM.PN ---
Subjective - Date & Time of Evaluation Date of Evaluation: 05/02/17 Time of Evaluation: 07:10 - Subjective Subjective: Surgery Progress note for Patient seen and examined at bedside. Patient resting comfortably in bed with no new complaints at this time. Patient says her pain is well controlled with analgesics. Patient says she wants a bigger abdominal binder or to combine to because this one is causing pain in her back. Patient says she is passing gas and had a normal BM this morning. Patient has been OOB with PT and using her incentive spirometer. She says she is tolerating her diet. She denies fever, chills, nausea, vomiting, chest pain, SOB, and leg pain. Objective - Vital Signs/Intake and Output Vital Signs (last 24 hours): Temp Pulse Resp BP Pulse Ox 98.4 F 89 20 123/71 96 05/02/17 08:39 05/02/17 08:39 05/02/17 08:39 05/02/17 08:39 05/02/17 08:39 Intake and Output: 05/02/17 05/02/17 06:59 18:59 Intake Total 840 1600 Output Total 300 Balance 540 1600 - Medications Medications: Current Medications Acetaminophen (Tylenol 325mg Tab) 650 mg PO Q4 PRN PRN Reason: Fever >100.4 F Al Hydrox/Mg Hydrox/Simethicone (Maalox Plus 30 Ml) 30 ml PO DAILY PRN PRN Reason: Indigestion / Heartburn Last Admin: 05/01/17 09:39 Dose: 30 ml Albuterol/Ipratropium (Duoneb 3 Mg/0.5 Mg (3 Ml) Ud) 3 ml IH [id number] PRN PRN Reason: Shortness of Breath Last Admin: 05/02/17 07:28 Dose: 3 ml Heparin Sodium (Porcine) (Heparin) 5,000 units SC 0600,1800 [facility] PRN Reason: Protocol Last Admin: 05/02/17 05:52 Dose: 5,000 units Hydromorphone HCl (Dilaudid) 1 mg IVP Q4H PRN PRN Reason: Pain, moderate (4-7) Last Admin: 05/02/17 14:16 Dose: 1 mg Insulin Human Regular (Humulin R High) 0 units SC ACHS [facility] PRN Reason: Protocol Last Admin: 05/02/17 12:00 Dose: Not Given Ondansetron HCl (Zofran Inj) 4 mg IVP Q4H PRN PRN Reason: Nausea/Vomiting Last Admin: 04/26/17 17:38 Dose: 4 mg Pantoprazole Sodium (Protonix Ec Tab) 40 mg PO 0600 [facility] Last Admin: 05/02/17 05:52 Dose: 40 mg - Labs Labs: 05/01/17 06:30 05/01/17 06:30 PT 10.4 Seconds (9.9-11.8) 04/26/17 09:56 INR 0.96 (0.93-1.08) 04/26/17 09:56 APTT 27.1 Seconds (23.7-30.8) 04/26/17 09:56 - Constitutional Appears: Non-toxic, No Acute Distress - Head Exam Head Exam: NORMAL INSPECTION - Eye Exam Eye Exam: EOMI - ENT Exam ENT Exam: Mucous Membranes Moist - Respiratory Exam Respiratory Exam: NORMAL BREATHING PATTERN. absent: Accessory Muscle Use, Wheezes, Respiratory Distress - Cardiovascular Exam Cardiovascular Exam: REGULAR RHYTHM. absent: Bradycardia, Tachycardia - GI/Abdominal Exam GI & Abdominal Exam: Soft, Tenderness (appropriate post op tenderness around incision site ). absent: Distended Additional comments: Midline incision clean, dry, and intact with magda in place except for some purulent drainage at the distal aspect of the incision; painted with betadine swab and dressings replaced - Extremities Exam Extremities Exam: absent: Calf Tenderness - Neurological Exam Neurological Exam: Alert, Awake - Psychiatric Exam Psychiatric exam: Normal Affect, Normal Mood - Skin Skin Exam: Dry, Intact, Normal Color, Warm Assessment and Plan - Assessment and Plan (Free Text) Assessment: 62F s/p exploratory laparotomy with lysis of adhesions and small bowel resection with [id number] anastamosis, POD#6 Plan: - Clear for discharge from a surgical perspective - Should be discharged with betadine swabs for keeping incision clean - further recs per Dr. Calvin Phan, PGY1
--- NOTE | 2017-05-02 21:39 | CP.PCM.PN ---
Subjective - Date & Time of Evaluation Date of Evaluation: 05/02/17 Time of Evaluation: 10:20 - Subjective Subjective: Comfortable, had solid BM this morning, passing gas, eating solid foods well. No fevers. Objective - Vital Signs/Intake and Output Vital Signs (last 24 hours): Temp Pulse Resp BP Pulse Ox 98.4 F 89 20 123/71 96 05/02/17 08:39 05/02/17 08:39 05/02/17 08:39 05/02/17 08:39 05/02/17 08:39 Intake and Output: 05/02/17 05/02/17 06:59 18:59 Intake Total 840 Output Total 300 Balance 540 - Medications Medications: Current Medications Acetaminophen (Tylenol 325mg Tab) 650 mg PO Q4 PRN PRN Reason: Fever >100.4 F Al Hydrox/Mg Hydrox/Simethicone (Maalox Plus 30 Ml) 30 ml PO DAILY PRN PRN Reason: Indigestion / Heartburn Last Admin: 05/01/17 09:39 Dose: 30 ml Albuterol/Ipratropium (Duoneb 3 Mg/0.5 Mg (3 Ml) Ud) 3 ml IH [id number] PRN PRN Reason: Shortness of Breath Last Admin: 05/02/17 07:28 Dose: 3 ml Heparin Sodium (Porcine) (Heparin) 5,000 units SC 0600,1800 [facility] PRN Reason: Protocol Last Admin: 05/02/17 05:52 Dose: 5,000 units Hydromorphone HCl (Dilaudid) 1 mg IVP Q4H PRN PRN Reason: Pain, moderate (4-7) Last Admin: 05/02/17 05:51 Dose: 1 mg Insulin Human Regular (Humulin R High) 0 units SC ACHS [facility] PRN Reason: Protocol Last Admin: 05/01/17 17:19 Dose: Not Given Ondansetron HCl (Zofran Inj) 4 mg IVP Q4H PRN PRN Reason: Nausea/Vomiting Last Admin: 04/26/17 17:38 Dose: 4 mg Pantoprazole Sodium (Protonix Ec Tab) 40 mg PO 0600 [facility] Last Admin: 05/02/17 05:52 Dose: 40 mg - Labs Labs: 05/01/17 06:30 05/01/17 06:30 PT 10.4 Seconds (9.9-11.8) 04/26/17 09:56 INR 0.96 (0.93-1.08) 04/26/17 09:56 APTT 27.1 Seconds (23.7-30.8) 04/26/17 09:56 - Constitutional Appears: Non-toxic, No Acute Distress - Head Exam Head Exam: NORMAL INSPECTION - Neck Exam Neck Exam: absent: Meningismus - Respiratory Exam Respiratory Exam: Decreased Breath Sounds - Cardiovascular Exam Cardiovascular Exam: +S1, +S2 - GI/Abdominal Exam GI & Abdominal Exam: Soft. absent: Tenderness Assessment and Plan - Assessment and Plan (Free Text) Plan: Assessment S/P systemic inflammatory response syndrome probably from small bowel obstruction S/P ex-lap and adhesiolysis POD #5 HTN DM neuropathy Plan we have discontinued Azactam and Flagyl since the WBC count has normalized and the patient is eating well and having solid BM's
--- NOTE | 2017-05-02 23:52 | CP.PCM.PN ---
Subjective - Date & Time of Evaluation Date of Evaluation: 05/02/17 Time of Evaluation: 19:30 - Subjective Subjective: Seen and examined at the bed side. Passing Flatus and has BMV since the surgery. Denies fever or chills. + Abdominal pain but tolerable. Objective - Vital Signs/Intake and Output Vital Signs (last 24 hours): Temp Pulse Resp BP Pulse Ox 98 F 94 H 20 124/74 93 L 05/02/17 16:00 05/02/17 16:00 05/02/17 16:00 05/02/17 16:00 05/02/17 16:00 Intake and Output: 05/02/17 05/03/17 18:59 06:59 Intake Total 1600 420 Balance 1600 420 - Medications Medications: Current Medications Acetaminophen (Tylenol 325mg Tab) 650 mg PO Q4 PRN PRN Reason: Fever >100.4 F Al Hydrox/Mg Hydrox/Simethicone (Maalox Plus 30 Ml) 30 ml PO DAILY PRN PRN Reason: Indigestion / Heartburn Last Admin: 05/01/17 09:39 Dose: 30 ml Albuterol/Ipratropium (Duoneb 3 Mg/0.5 Mg (3 Ml) Ud) 3 ml IH [id number] PRN PRN Reason: Shortness of Breath Last Admin: 05/02/17 07:28 Dose: 3 ml Heparin Sodium (Porcine) (Heparin) 5,000 units SC 0600,1800 [facility] PRN Reason: Protocol Last Admin: 05/02/17 17:59 Dose: 5,000 units Hydromorphone HCl (Dilaudid) 1 mg IVP Q4H PRN PRN Reason: Pain, moderate (4-7) Last Admin: 05/02/17 22:35 Dose: 1 mg Insulin Human Regular (Humulin R High) 0 units SC ACHS [facility] PRN Reason: Protocol Last Admin: 05/02/17 23:29 Dose: Not Given Ondansetron HCl (Zofran Inj) 4 mg IVP Q4H PRN PRN Reason: Nausea/Vomiting Last Admin: 04/26/17 17:38 Dose: 4 mg Pantoprazole Sodium (Protonix Ec Tab) 40 mg PO 0600 [facility] Last Admin: 05/02/17 05:52 Dose: 40 mg - Labs Labs: 05/01/17 06:30 05/01/17 06:30 PT 10.4 Seconds (9.9-11.8) 04/26/17 09:56 INR 0.96 (0.93-1.08) 04/26/17 09:56 APTT 27.1 Seconds (23.7-30.8) 04/26/17 09:56 - Constitutional Appears: Well, No Acute Distress - Head Exam Head Exam: ATRAUMATIC, NORMAL INSPECTION, NORMOCEPHALIC - Eye Exam Eye Exam: EOMI, Normal appearance, PERRL Pupil Exam: NORMAL ACCOMODATION, PERRL - ENT Exam ENT Exam: Mucous Membranes Moist, Normal Exam - Neck Exam Neck Exam: Full ROM, Normal Inspection. absent: Lymphadenopathy - Respiratory Exam Respiratory Exam: Clear to Ausculation Bilateral, NORMAL BREATHING PATTERN - Cardiovascular Exam Cardiovascular Exam: REGULAR RHYTHM, +S1, +S2. absent: Murmur - GI/Abdominal Exam GI & Abdominal Exam: Soft, Tenderness, Normal Bowel Sounds. absent: Guarding, Rebound - Extremities Exam Extremities Exam: Full ROM, Normal Capillary Refill, Normal Inspection. absent : Joint Swelling, Pedal Edema - Back Exam Back Exam: NORMAL INSPECTION - Neurological Exam Neurological Exam: Alert, Awake, CN II-XII Intact, Oriented x3 - Psychiatric Exam Psychiatric exam: Normal Affect, Normal Mood - Skin Skin Exam: Dry, Intact, Normal Color, Warm Assessment and Plan (1) Small bowel obstruction Assessment & Plan: Lysis of Adhesions and small bowel resection with [id number] Anastamosis IMproving Continue Current Care Status: Acute
[2017-05-03] MEDS: HYDROmorphone 1 mg/ml ISec IVP PRN ×2 (03:41→08:50)
[2017-05-03] MEDS: Pantoprazole 40 mg EC Tab PO SCH (05:59)
[2017-05-03 07:59] VITALS: BP 131/73; PULSE 64; RESP 16; TEMP 98.1; O2SAT 98
--- NOTE | 2017-05-03 08:34 | CP.PCM.PN ---
Subjective - Date & Time of Evaluation Date of Evaluation: 05/03/17 Time of Evaluation: 08:30 - Subjective Subjective: Surgery Progress note for Patient seen and examined at bedside. Patient resting comfortably in bed with no new complaints at this time. Patient says her pain is well controlled with analgesics. Patient says she is passing gas and having normal BMs. Patient says she has been walking the floors and using her incentive spirometer. She says she is tolerating her diet. She denies fever, chills, nausea, vomiting, chest pain, SOB, and leg pain. Objective - Vital Signs/Intake and Output Vital Signs (last 24 hours): Temp Pulse Resp BP Pulse Ox 98.1 F 64 16 131/73 98 05/03/17 07:58 05/03/17 07:58 05/03/17 07:58 05/03/17 07:58 05/03/17 07:58 Intake and Output: 05/03/17 05/03/17 06:59 18:59 Intake Total 420 Balance 420 - Medications Medications: Current Medications Acetaminophen (Tylenol 325mg Tab) 650 mg PO Q4 PRN PRN Reason: Fever >100.4 F Al Hydrox/Mg Hydrox/Simethicone (Maalox Plus 30 Ml) 30 ml PO DAILY PRN PRN Reason: Indigestion / Heartburn Last Admin: 05/01/17 09:39 Dose: 30 ml Albuterol/Ipratropium (Duoneb 3 Mg/0.5 Mg (3 Ml) Ud) 3 ml IH [id number] PRN PRN Reason: Shortness of Breath Last Admin: 05/02/17 07:28 Dose: 3 ml Heparin Sodium (Porcine) (Heparin) 5,000 units SC 0600,1800 STONE PRN Reason: Protocol Last Admin: 05/03/17 06:00 Dose: 5,000 units Hydromorphone HCl (Dilaudid) 1 mg IVP Q4H PRN PRN Reason: Pain, moderate (4-7) Last Admin: 05/03/17 03:41 Dose: 1 mg Insulin Human Regular (Humulin R High) 0 units SC ACHS [facility] PRN Reason: Protocol Last Admin: 05/02/17 23:29 Dose: Not Given Ondansetron HCl (Zofran Inj) 4 mg IVP Q4H PRN PRN Reason: Nausea/Vomiting Last Admin: 04/26/17 17:38 Dose: 4 mg Pantoprazole Sodium (Protonix Ec Tab) 40 mg PO 0600 STONE Last Admin: 05/03/17 05:59 Dose: 40 mg - Labs Labs: 05/01/17 06:30 05/01/17 06:30 PT 10.4 Seconds (9.9-11.8) 04/26/17 09:56 INR 0.96 (0.93-1.08) 04/26/17 09:56 APTT 27.1 Seconds (23.7-30.8) 04/26/17 09:56 - Additional Findings Additional findings: - Constitutional Appears: Non-toxic, No Acute Distress - Head Exam Head Exam: NORMAL INSPECTION - Eye Exam Eye Exam: EOMI - ENT Exam ENT Exam: Mucous Membranes Moist - Respiratory Exam Respiratory Exam: NORMAL BREATHING PATTERN. absent: Accessory Muscle Use, Wheezes, Respiratory Distress - Cardiovascular Exam Cardiovascular Exam: REGULAR RHYTHM. absent: Bradycardia, Tachycardia - GI/Abdominal Exam GI & Abdominal Exam: Soft, Tenderness (appropriate post op tenderness around incision site ). absent: Distended Additional comments: Midline incision clean, dry, and intact with magda in place except for 2 removed yesterday that were no longer holding; some purulent drainage at the distal aspect of the incision which was cleaned and painted with betadine swab; dressings were replaced - Extremities Exam Extremities Exam: absent: Calf Tenderness - Neurological Exam Neurological Exam: Alert, Awake - Psychiatric Exam Psychiatric exam: Normal Affect, Normal Mood - Skin Skin Exam: Dry, Intact, Normal Color, Warm Assessment and Plan - Assessment and Plan (Free Text) Assessment: 62F s/p exploratory laparotomy with lysis of adhesions and small bowel resection with [id number] anastamosis, POD#7 Plan: - clear for discharge from a surgical standpoint - educated on dressing changes with 4x4s and using betadine swabs to keep the incision clean - she will need this upon discharge - f/u with in his office in 1 week - will discuss with Dr. Calvin Phan, PGY1
[2017-05-03] MEDS ORDERED: Oxycodone/Acetaminophen 5/325 mg Tab PO PRN (09:22)
--- NOTE | 2017-05-03 11:50 | PN ---
DATE: 05/03/2017 SUBJECTIVE: The patient is in bed, in no acute distress, nontoxic. PHYSICAL EXAMINATION: VITAL SIGNS: Temperature is 98, blood pressure is 130/70, respiratory rate of 16. HEENT: Unremarkable. NECK: Supple. LUNGS: Decreased breath sounds. HEART: Normal S1 and S2. ABDOMEN: Soft, nontender. LABORATORY EXAMINATION: Reveals the patient to have a white count of 11,500, hemoglobin of 11. Chemistries are noted. Microbiology is noted. Review of orders reveals the patient to be off of antibiotics. ASSESSMENT AND PLAN: A 62-year-old female with systemic inflammatory response syndrome with small bowel obstruction status post exploratory laparotomy and lysis of adhesions postprocedure day #6 and the patient with hypertensive, diabetic and neuropathy, off of antibiotics and the patient is hoping for discharge today. Carlitos Toro MD
--- NOTE | 2017-05-04 04:53 | DS ---
HISTORY OF PRESENT ILLNESS: The patient, Daksha Riddle presents to the hospital secondary to abdominal pain. At this point, she is doing much better. She is tolerating her diet, was seen by Surgery and at that point, was cleared by them due to the fact that she is now eating and passing bowels. Last time when she has bowel movement was on Saturday. PHYSICAL EXAMINATION: VITAL SIGNS: Blood pressure of 131/73, pulse rate of 64, temperature 98.1, O2 saturation is 98. HEENT: Normocephalic, atraumatic. [place] conjunctivae. CARDIOVASCULAR: Regular rate and rhythm. S1 and S2 appreciated. No S3 noted. LUNGS: Bilateral air entry is positive. No wheeze or rhonchi. ABDOMEN: Nondistended. Positive bowel sounds. LABORATORY DATA: Labs were noted, WBC of 1.5, hemoglobin of 11, hematocrit of 34.7, platelets of 256. Chemistries within normal limits. The patient will be discharged to home. DISCHARGE DIAGNOSES: 1. Possible small bowel obstruction. 2. Hypertension. PLAN: She was seen by Infectious Disease as well as Surgery, which have cleared her at this point, so we will discharge her to home. Eleuterio Berrios MD
== END 2017-05-03 15:07 | disposition home or self-care (01) | DRG 585 ==
LOC: ED 20:03 → ERH 04-25 00:23 → 5RSO 04-25 02:06
PROVIDERS: ADMIT Family Medicine; ATTEND Family Medicine
PROC: 0DT80ZZ Resection of Small Intestine, Open Approach (ICD-10-PCS; principal; 2017-04-26 07:30)
PROC: 0DN80ZZ Release Small Intestine, Open Approach (ICD-10-PCS; 2017-04-26 07:30)
DX: K56.50 Intestinal adhesions [bands], unspecified as to partial versus complete obstruction (principal); R65.10 Systemic inflammatory response syndrome (SIRS) of non-infectious origin without acute organ dysfunction; E11.40 Type 2 diabetes mellitus with diabetic neuropathy, unspecified; E11.649 Type 2 diabetes mellitus with hypoglycemia without coma; J44.9 Chronic obstructive pulmonary disease, unspecified; M17.10 Unilateral primary osteoarthritis, unspecified knee; I10 Essential (primary) hypertension; F32.9 Major depressive disorder, single episode, unspecified; R60.0 Localized edema; Z68.41 Body mass index [BMI] 40.0-44.9, adult; E66.9 Obesity, unspecified; Z87.891 Personal history of nicotine dependence; Z88.0 Allergy status to penicillin; Z79.84 Long term (current) use of oral hypoglycemic drugs; Z79.82 Long term (current) use of aspirin; Z98.1 Arthrodesis status